=== PATIENT | female | born 1950 | race Caucasian/White ===

== ENCOUNTER 2017-12-01 11:15 | Outpatient (RCR) | payer OTHER, SELFPAY ==
[2017-11-24 10:59] VITALS: BP 115/66; PULSE 61; RESP 18; TEMP 35.4; BMI 28.7
--- NOTE | 2017-11-24 14:24 | PCM.WC.HP ---
(1) Dog bite of calf Status: Chronic Current Visit: Yes Qualifiers: Encounter type: initial encounter Laterality: right Qualified Code(s): S81.851A - Open bite, right lower leg, initial encounter; W54.0XXA - Bitten by dog, initial encounter Code(s): S81.859A - Open bite, unspecified lower leg, initial encounter; W54.0XXA - Bitten by dog, initial encounter (2) Overweight (BMI 25.0-29.9) Status: Chronic Current Visit: No Code(s): E66.3 - Overweight (3) Mitzy's disease Status: Chronic Current Visit: No Code(s): E06.3 - Autoimmune thyroiditis (4) Hyperlipidemia Status: Chronic Current Visit: No Code(s): E78.5 - Hyperlipidemia, unspecified (5) History of TIA (transient ischemic attack) Status: Chronic Current Visit: No Code(s): Z86.73 - Personal history of transient ischemic attack (TIA), and cerebral infarction without residual deficits (6) Rheumatoid arthritis Status: Chronic Current Visit: No Code(s): M06.9 - Rheumatoid arthritis, unspecified (7) Non-healing non-surgical wound Status: Chronic Current Visit: Yes Code(s): T14.8XXA - Other injury of unspecified body region, initial encounter History of Present Illness Date of Service: 11/24/17 Chief Complaint: Dog bite of the right calf with chronic nonhealing History of Wound: This is a 67-year-old female who sustained a dog bite to the right calf on September 20, 2017. She was bitten by a pit bull terrier. She presented to the emergency department in [facility]. There, her wounds were cleansed, sutured, the patient was discharged with a prescription for Augmentin orally and a prescription for mupirocin to be applied topically. She completed her course of Augmentin, was subsequently evaluated by Dr. Johnson, who then prescribed a course of clindamycin. The patient continue to use mupirocin topically, but her wounds failed to heal. She was subsequently referred to the [facility] for management. The patient officially has a [place] address. She lives part of the year in [place], but she and her on a recreational vehicle, and spent a good part of their time traveling about the country. They have plans to spend this upcoming winter in [place], [place], intending to leave further destination within a few short weeks. The patient denies fever, erythema, or manifestations of lymphangitis. She does indicate that she has had occasional yellowish drainage from her wounds. Past Medical History Past Medical History: Chronic Problems Dog bite of calf (Chronic) Overweight (BMI 25.0-29.9) (Chronic) Mitzy's disease (Chronic) Hyperlipidemia (Chronic) History of TIA (transient ischemic attack) (Chronic) Rheumatoid arthritis (Chronic) Non-healing non-surgical wound (Chronic) Past Medical History: The patient has a history of transient ischemic attack in 1995. She also suffers from hyperlipidemia and Mitzy's disease. Her BMI is 28.7, placing her in an overweight category. Her history is negative for myocardial infarction, congestive heart failure, hypertension, cancer, pulmonary disease, and renal disease. Surgical History: - - Patient has had temporomandibular joint surgery. She is undergone bilateral bunion surgery, and surgery of the second toe on each foot. She is a Ab0. Allergies/Adverse Reactions: Allergies No Known Allergies Allergy (Verified 11/24/17 11:49) Home Medications: Ambulatory Orders Medication Instructions Recorded Desonide 0.05% [Desowen 0.05% 1 applic TOPICAL BID 11/24/17 Cream] Folic Acid 1 mg PO DAILY@0800 11/24/17 Hydrochlorothiazide [Hctz] 25 mg PO DAILY 11/24/17 Levothyroxine [Synthroid] 137 mcg PO DAILY 11/24/17 Methotrexate 15 mg PO QWEEK 11/24/17 Omeprazole 40 mg PO DAILY 11/24/17 Oxycodone HCl/Acetaminophen 1 tablet PO Q6H PRN PRN 11/24/17 [Percocet 7.5-325 mg Tablet] Sucralfate 1 gm PO BID 11/24/17 Tizanidine HCl 4 mg PO TID PRN PRN 11/24/17 Tocilizumab [Actemra] 162 mg SQ UD 11/24/17 Triamcinolone 0.5% Cream 1 applic TOPICAL BID 11/24/17 [Triamcinolone Acetonide] - Family History Paternal - - The patient's father at the age of 60 with a history of atherosclerosis and cerebrovascular accident. The patient's mother at the age of 76 with history of rheumatoid arthritis, lung cancer, and myocardial infarction. Social History: The patient is . She is a retired [employer] officer. She denies use of tobacco products. She consumes alcoholic beverages occasionally. Lives: Spouse/ Significant Other Smoking Status: Former smoker Tobacco Use: Non-smoker Alcohol: Occasional Drugs: None Review of Systems Constitutional: Denies: Chills, Fever, Weight Change Eyes: Denies: Pain, Vision Change HEENT: Denies: Difficulty Hearing, Difficulty Swallowing, Sinus Congestion Cardiovascular: Denies: Chest Pain, Palpitations Respiratory: Denies: Cough, Shortness of Breath Gastrointestinal: Denies: Diarrhea, Nausea, Vomiting Genitourinary: Denies: Dysuria, Hematuria Endocrine: Denies: Heat/ Cold Intolerance, Polydipsia, Polyuria Hematologic/ Lymphatic: Denies: Easy Bruising, Easy Bleeding - Physical Exam Vital Signs Temp Pulse Resp BP 95.7 F L 61 18 115/66 11/24/17 10:59 11/24/17 10:59 11/24/17 10:59 11/24/17 10:59 General: Alert, Oriented x3, Cooperative, No apparent distress, Well developed, Well nourished HEENT: Atraumatic, PERRLA, EOMI, Normocephalic Oral: Moist Mucosa, No Gingival or Mucosal Lesions/ Ulcerations Neck: Supple, No JVD, Negative Carotid Bruits, Negative Hepatojugular Reflux, No Nodes, No Nuchal Rigidity, Trachea Midline Lungs: Clear to auscultation, Normal air movement, No rhonchi, No wheeze, No rales Cardiovascular: Regular rate, Regular Rhythm, Normal S1, Normal S2, No murmurs Abdomen: Soft, Non Tender, Non-Distended Extremities: No clubbing, No cyanosis, No edema, No Calf Tenderness, Peripheral Pulses Normal, - - Paired dog bites are noted on the right posterior calf and on the right lateral calf. Undermining is noted in association with these dog bite wounds. There is no significant erythema or cellulitis. A small amount of yellowish drainage is noted. Cultures have been obtained, both aerobic and anaerobic. Dimensions are documented elsewhere. Skin: No rashes Wound Measurements and Assessment WC - Nurse 1 - General Ulcer Measurement Start: 11/24/17 10:58 Freq: Status: Active Protocol: Activity Type Activity Date Activity User E-Sign Co-Sign Detail Recorded Client Recorded Date Recorded By Document 11/24/17 10:59 ROCHELLE [id number] 11/24/17 11:34 ROCHELLE 11/24/17 10:59 Wound Center Nurse 1 [Ulcer Assessment] 3-RIGHT CALF -Combined with other wound No -Current Size (cm) - Length 0.2 -Current Size (cm) - Width 1.2 -Current Size (cm) - Depth 0.3 -Total Square Cm 0.24 -Photo Taken Yes -Epithelialization Large 67-100% -Tunneling No -Undermining/Tunneling No -Circular Undermining No -Classification - Thickness Full Thickness without Exposed Support Structure -Exudate Amt Small (1-33%) -Exudate Type Serosanguineous -Wound Margin Flat & Intact -Granulation Amt Medium (34-66%) -Granulation Quality Red -Slough/Fibrin Yes -Necrosis Amt Small (1-33%) -Necrotic Tissue Type Adherent Slough -Structure Exposed N/A -Texture (Tamiko-wound Skin Appearance) Assessed Localized Edema -Moisture (Tamiko-wound Skin Appearance Assessed ) Dry/Scaly -Color (Tamiko-wound Skin Appearance) Assessed -Temperature (Tamiko-wound Skin No Abnormality Appearance) (Pt Warm) -Tenderness on Palpation (Tamiko-wound No Skin Appearance) -Ulcer Cleansing Rinsed/ Irrigated with Saline -Foul Odor after Cleansing No -Anesthetic Used 5% Lidocaine Gel 2-RIGHT LATERAL INFERIOR LEG -Combined with other wound No -Current Size (cm) - Length 1.2 -Current Size (cm) - Width 0.5 -Current Size (cm) - Depth 0.1 -Total Square Cm 0.60 -Photo Taken Yes -Epithelialization Medium 34-66% -Tunneling No -Undermining/Tunneling No -Circular Undermining No -Classification - Thickness Full Thickness without Exposed Support Structure -Exudate Amt Small (1-33%) -Exudate Type Serosanguineous -Wound Margin Flat & Intact -Granulation Amt Medium (34-66%) -Granulation Quality [place] -Slough/Fibrin Yes -Necrosis Amt Medium (34-66%) -Necrotic Tissue Type Adherent Slough -Structure Exposed N/A -Texture (Tamiko-wound Skin Appearance) Assessed Localized Edema -Moisture (Tamiko-wound Skin Appearance Assessed ) Dry/Scaly -Color (Tamiko-wound Skin Appearance) Assessed -Temperature (Tamiko-wound Skin No Abnormality Appearance) (Pt Warm) -Tenderness on Palpation (Tamiko-wound No Skin Appearance) -Ulcer Cleansing Rinsed/ Irrigated with Saline -Foul Odor after Cleansing No -Anesthetic Used 5% Lidocaine Gel 1-RIGHT sUPERIOR LEG -Combined with other wound No -Current Size (cm) - Length 0.4 -Current Size (cm) - Width 0.1 -Current Size (cm) - Depth 0.1 -Total Square Cm 0.04 -Photo Taken Yes -Epithelialization Large 67-100% -Tunneling No -Undermining/Tunneling No -Circular Undermining No -Classification - Thickness Full Thickness without Exposed Support Structure -Exudate Amt None Present (0 %) -Exudate Type Serosanguineous -Wound Margin Flat & Intact -Granulation Amt None Present (0 %) -Slough/Fibrin Yes -Necrosis Amt Large (67-100%) -Structure Exposed N/A -Texture (Tamiko-wound Skin Appearance) Assessed -Moisture (Tamiko-wound Skin Appearance Assessed ) Dry/Scaly -Color (Tamiko-wound Skin Appearance) Assessed -Temperature (Tamiko-wound Skin No Abnormality Appearance) (Pt Warm) -Tenderness on Palpation (Tamiko-wound No Skin Appearance) -Ulcer Cleansing Rinsed/ Irrigated with Saline -Foul Odor after Cleansing No -Anesthetic Used 5% Lidocaine Gel [Edema Assessment] -Lower Limb Edema Present Yes -Right Calf (cm) 37.5 -Right Ankle (cm) 23.3 WC - Nurse 2 - General Ulcer CM Notes Start: 11/24/17 10:58 Freq: Status: Active Protocol: Activity Type Activity Date Activity User E-Sign Co-Sign Detail Recorded Client Recorded Date Recorded By Document 11/24/17 12:19 [id number] 11/24/17 12:38 11/24/17 12:19 Wound Center Nurse 2 [Procedure/Treatment] 3-RIGHT CALF -Time 12:19 -Correct Patient Yes -Correct Side, Site, Position Yes -Correct Procedure Yes -Procedure Performed Yes -Type of Procedure Debridement -Clinical Debridement Subcutaneous -Post Debridement Size (cm) - Length 0.2 -Post Debridement Size (cm) - Width 1.2 -Post Debridement Size (cm) - Depth 0.9 -Total Square Cm 0.24 -Wound/Ulcer Outcome Not Healed -Ulcer Cleansing Not Cleansed -Foul Odor after Cleansing No -Bioengineered Tissue No -Bleeding Controlled with NA -Treatment Response Procedure Tolerated Well 2-RIGHT LATERAL INFERIOR LEG -Time 12:19 -Correct Patient Yes -Correct Side, Site, Position Yes -Correct Procedure Yes -Procedure Performed Yes -Type of Procedure Debridement -Clinical Debridement Subcutaneous -Post Debridement Size (cm) - Length 1.2 -Post Debridement Size (cm) - Width 0.5 -Post Debridement Size (cm) - Depth 0.6 -Total Square Cm 0.60 -Wound/Ulcer Outcome Not Healed -Ulcer Cleansing Not Cleansed -Foul Odor after Cleansing No -Bioengineered Tissue No -Bleeding Controlled with NA -Treatment Response Procedure Tolerated Well 1-RIGHT sUPERIOR LEG -Time 12:20 -Correct Patient Yes -Correct Side, Site, Position Yes -Correct Procedure Yes -Procedure Performed Yes -Type of Procedure Debridement -Clinical Debridement Subcutaneous -Post Debridement Size (cm) - Length 0.4 -Post Debridement Size (cm) - Width 0.1 -Post Debridement Size (cm) - Depth 0.8 -Total Square Cm 0.04 -Wound/Ulcer Outcome Not Healed -Ulcer Cleansing Not Cleansed -Foul Odor after Cleansing No -Bioengineered Tissue No -Bleeding Controlled with Pressure -Treatment Response Procedure Tolerated Well [See Physician Procedure note for Specifics] Pain Scale: 0-10 Numeric [Pain] -Is Patient Pain Free? Yes Musculoskeletal: No Muscle Wasting Neurological: Cranial nerves II-XII grossly intact, Neuro grossly intact Psych/Mental Status: Normal Affect, Appropriate, Alert and oriented to time, place, person, mood and affect Debridement Note Post-Debridement Measurements/Treatment WC - Nurse 2 - General Ulcer CM Notes Start: 11/24/17 10:58 Freq: Status: Active Protocol: Activity Type Activity Date Activity User E-Sign Co-Sign Detail Recorded Client Recorded Date Recorded By Document 11/24/17 12:19 [id number] 11/24/17 12:38 11/24/17 12:19 Wound Center Nurse 2 3-RIGHT CALF -Time 12:19 -Correct Patient Yes -Correct Side, Site, Position Yes -Correct Procedure Yes -Procedure Performed Yes -Type of Procedure Debridement -Clinical Debridement Subcutaneous -Post Debridement Size (cm) - Length 0.2 -Post Debridement Size (cm) - Width 1.2 -Post Debridement Size (cm) - Depth 0.9 -Total Square Cm 0.24 -Wound/Ulcer Outcome Not Healed -Ulcer Cleansing Not Cleansed -Foul Odor after Cleansing No -Bioengineered Tissue No -Bleeding Controlled with NA -Treatment Response Procedure Tolerated Well 2-RIGHT LATERAL INFERIOR LEG -Time 12:19 -Correct Patient Yes -Correct Side, Site, Position Yes -Correct Procedure Yes -Procedure Performed Yes -Type of Procedure Debridement -Clinical Debridement Subcutaneous -Post Debridement Size (cm) - Length 1.2 -Post Debridement Size (cm) - Width 0.5 -Post Debridement Size (cm) - Depth 0.6 -Total Square Cm 0.60 -Wound/Ulcer Outcome Not Healed -Ulcer Cleansing Not Cleansed -Foul Odor after Cleansing No -Bioengineered Tissue No -Bleeding Controlled with NA -Treatment Response Procedure Tolerated Well 1-RIGHT sUPERIOR LEG -Time 12:20 -Correct Patient Yes -Correct Side, Site, Position Yes -Correct Procedure Yes -Procedure Performed Yes -Type of Procedure Debridement -Clinical Debridement Subcutaneous -Post Debridement Size (cm) - Length 0.4 -Post Debridement Size (cm) - Width 0.1 -Post Debridement Size (cm) - Depth 0.8 -Total Square Cm 0.04 -Wound/Ulcer Outcome Not Healed -Ulcer Cleansing Not Cleansed -Foul Odor after Cleansing No -Bioengineered Tissue No -Bleeding Controlled with Pressure -Treatment Response Procedure Tolerated Well Pain Scale: 0-10 Numeric Is Patient Pain Free? Yes Laterality: Right - Posterior calf Type of Debridement: Excisional debridement Anesthesia Used: 4% Lidocaine Solution Depth: Down to and including healthy tissue, in the subcutaneous layer Percentage of wound debrided: 100 Instrument Used: 3mm curette Severity: Fat Layer Exposed Amount of bleeding with debridement: Mild Bleeding Controlled with: Compression and gauze Patient tolerated procedure well During the course of debriding the patient's dog bite wounds, aerobic and anaerobic cultures were obtained by swab. - Additional Wound Laterality: Right - Lateral calf Type of Debridement: Excisional debridement Anesthesia Used: 4% Lidocaine Solution Depth: Down to and including healthy tissue, in the subcutaneous layer Percentage of wound debrided: 100 Instrument Used: 3mm curette Severity: Fat Layer Exposed Amount of bleeding with debridement: Mild Bleeding Controlled with: Compression and gauze Patient tolerated procedure: Patient tolerated procedure well Assessment/Plan Active Problems Dog bite of calf (Chronic) Non-healing non-surgical wound (Chronic) Assessment: This is a 67-year-old female who sustained a dog bite wound to the right calf September 20, 2017, approximately 2 months ago. She was evaluated initially in the emergency department at [facility], and subsequently by Dr. Johnson, and has been treated topically by mupirocin and 2 separate courses of oral antibiotics, initially Augmentin and subsequently clindamycin. Despite these measures, the patient's dog bite wounds have failed to heal, and have persisted until the current time. She has been referred to our facility for evaluation and management. In general, she appears to be relatively healthy, and active. Physical examination reveals no evidence to suggest significant arterial occlusive disease. The morphology of the patient's dog bite wounds is such that there is undermining present with respect to the paired wounds on the right posterior calf and on the right lateral calf. Patient has recently undergone outpatient laboratory studies, dated October 28, 2017, with results as follows: White blood count 3.7, hemoglobin 13.6, hematocrit 40.9, glucose 88, sodium 138, potassium 3.9, chloride 103, creatinine 0.67, calcium 9.3, albumin 4.5, alkaline phosphatase 88, ALT 30, AST 30, total protein 6.7, sed rate 2, C-reactive protein less than 0.5. Plan: At this juncture, we are to implement the use of Nu Gauze packing to the wounds of the patient's right calf. The wounds are somewhat tunneled, and may be of a morphology which is not ideal for healing by secondary intention. This is a matter that has been explained to the patient and her . We will initiate care by means of packing with moistened 1/4 inch Nu Gauze. This will be performed on a daily basis. The patient, and her , have been instructed in appropriate means of packing of the wounds. The patient will return in 1 week for reevaluation. The wound has been cultured, and culture results will be awaited. Ultimately, after several weeks, if evidence of progress and healing is not realized, consideration may be given to surgical unroofing and debridement of the dog bite wounds, which will ultimately facilitate healing by secondary intention. The patient is not a smoker. Influenza vaccine was not administered today. Patient stands 5 feet 6 inches tall. She weighs 178 pounds. Her BMI is 28.7, which places her in an overweight category. Weight loss has been recommended, and collaboration with the patient's primary care physician has been advised.
[2017-12-01 11:09] VITALS: BP 137/72; PULSE 53; RESP 18; TEMP 35.5; BMI 28.7
--- NOTE | 2017-12-01 12:23 | PCM.WC.HP ---
(1) Dog bite of calf Status: Chronic Current Visit: Yes Qualifiers: Encounter type: subsequent encounter Laterality: right Qualified Code(s): S81.851D - Open bite, right lower leg, subsequent encounter; W54.0XXD - Bitten by dog, subsequent encounter Code(s): S81.859A - Open bite, unspecified lower leg, initial encounter; W54.0XXA - Bitten by dog, initial encounter (2) Overweight (BMI 25.0-29.9) Status: Chronic Current Visit: No Code(s): E66.3 - Overweight (3) Mitzy's disease Status: Chronic Current Visit: No Code(s): E06.3 - Autoimmune thyroiditis (4) Hyperlipidemia Status: Chronic Current Visit: No Code(s): E78.5 - Hyperlipidemia, unspecified (5) History of TIA (transient ischemic attack) Status: Chronic Current Visit: No Code(s): Z86.73 - Personal history of transient ischemic attack (TIA), and cerebral infarction without residual deficits (6) Rheumatoid arthritis Status: Chronic Current Visit: No Code(s): M06.9 - Rheumatoid arthritis, unspecified (7) Non-healing non-surgical wound Status: Chronic Current Visit: Yes Code(s): T14.8XXA - Other injury of unspecified body region, initial encounter History of Present Illness Chief Complaint: Dog bite of the right calf with chronic nonhealing History of Wound: This is a 67-year-old female who sustained a dog bite to the right calf on September 20, 2017. She was bitten by a pit bull terrier. She presented to the emergency department in [facility]. There, her wounds were cleansed, sutured, the patient was discharged with a prescription for Augmentin orally and a prescription for mupirocin to be applied topically. She completed her course of Augmentin, and was subsequently evaluated by Dr. Johnson, who then prescribed a course of clindamycin. The patient continued to use mupirocin topically, but her wounds failed to heal. She was subsequently referred to the [facility] for management. The patient officially has a [place] address. She lives part of the year in [place], but she and her own a recreational vehicle, and spend a good part of their time traveling about the country. They have plans to spend this upcoming winter in [place], [place], intending to leave for their destination within a few short weeks. The patient denies fever, erythema, or manifestations of lymphangitis. She indicated that she had had occasional yellowish drainage from her wounds. Past Medical History Past Medical History: Chronic Problems Dog bite of calf (Chronic) Overweight (BMI 25.0-29.9) (Chronic) Mitzy's disease (Chronic) Hyperlipidemia (Chronic) History of TIA (transient ischemic attack) (Chronic) Rheumatoid arthritis (Chronic) Non-healing non-surgical wound (Chronic) Surgical History: - - Patient has had temporomandibular joint surgery. She is undergone bilateral bunion surgery, and surgery of the second toe on each foot. She is a Ab0. Allergies/Adverse Reactions: Allergies No Known Allergies Allergy (Verified 11/24/17 11:49) Home Medications: Ambulatory Orders Medication Instructions Recorded Desonide 0.05% [Desowen 0.05% 1 applic TOPICAL BID 11/24/17 Cream] Folic Acid 1 mg PO DAILY@0800 11/24/17 Hydrochlorothiazide [Hctz] 25 mg PO DAILY 11/24/17 Levothyroxine [Synthroid] 137 mcg PO DAILY 11/24/17 Methotrexate 15 mg PO QWEEK 11/24/17 Omeprazole 40 mg PO DAILY 11/24/17 Oxycodone HCl/Acetaminophen 1 tablet PO Q6H PRN PRN 11/24/17 [Percocet 7.5-325 mg Tablet] Sucralfate 1 gm PO BID 11/24/17 Tizanidine HCl 4 mg PO TID PRN PRN 11/24/17 Tocilizumab [Actemra] 162 mg SQ UD 11/24/17 Triamcinolone 0.5% Cream 1 applic TOPICAL BID 11/24/17 [Triamcinolone Acetonide] - Family History Paternal - - The patient's father at the age of 60 with a history of atherosclerosis and cerebrovascular accident. The patient's mother at the age of 76 with history of rheumatoid arthritis, lung cancer, and myocardial infarction. Lives: Spouse/ Significant Other Smoking Status: Former smoker Tobacco Use: Non-smoker Alcohol: Occasional Drugs: None Review of Systems Constitutional: Denies: Chills, Fever, Weight Change Eyes: Denies: Pain, Vision Change HEENT: Denies: Difficulty Hearing, Difficulty Swallowing, Sinus Congestion Cardiovascular: Denies: Chest Pain, Palpitations Respiratory: Denies: Cough, Shortness of Breath Gastrointestinal: Denies: Diarrhea, Nausea, Vomiting Genitourinary: Denies: Dysuria, Hematuria Endocrine: Denies: Heat/ Cold Intolerance, Polydipsia, Polyuria Hematologic/ Lymphatic: Denies: Easy Bruising, Easy Bleeding - Physical Exam Vital Signs Temp Pulse Resp BP 95.9 F L 53 L 18 137/72 H 12/01/17 11:09 12/01/17 11:09 12/01/17 11:09 12/01/17 11:09 General: Alert, Oriented x3, Cooperative, No apparent distress, Well developed, Well nourished HEENT: Atraumatic, PERRLA, EOMI, Normocephalic Oral: Moist Mucosa Neck: No JVD Lungs: Normal air movement Abdomen: Non-Distended Extremities: No clubbing, No cyanosis, No edema, No Calf Tenderness, - - The wounds on the patient's right lower extremity, the result of a dog bite, appear somewhat improved. Each is generally pink and healthy in appearance, with evidence of active, healthy granulation tissue. There is no sign of infection or cellulitis. There is no associated erythema. Only mild bioburden is present. Dimensions are documented elsewhere. Skin: No rashes Wound Measurements and Assessment WC - Nurse 1 - General Ulcer Measurement Start: 11/24/17 10:58 Freq: Status: Active Protocol: Activity Type Activity Date Activity User E-Sign Co-Sign Detail Recorded Client Recorded Date Recorded By Document 12/01/17 11:09 GERARD [id number] 12/01/17 11:20 DL 12/01/17 11:09 Wound Center Nurse 1 [Ulcer Assessment] 3-RIGHT CALF -Current Size (cm) - Length 0.3 -Current Size (cm) - Width 2.6 -Current Size (cm) - Depth 0.2 -Total Square Cm 0.78 -Photo Taken No -Exudate Amt Small (1-33%) -Exudate Type Serosanguineous -Wound Margin Distinct, Outline Attached -Granulation Amt Large (67-100%) -Granulation Quality Red -Necrosis Amt None Present (0 %) -Structure Exposed N/A -Texture (Tamiko-wound Skin Appearance) Localized Edema -Moisture (Tamiko-wound Skin Appearance No Abnormality ) -Color (Tamiko-wound Skin Appearance) No Abnormality -Temperature (Tamiko-wound Skin No Abnormality Appearance) (Pt Warm) -Tenderness on Palpation (Tamiko-wound Yes Skin Appearance) -Ulcer Cleansing Rinsed/ Irrigated with Saline -Foul Odor after Cleansing No -Anesthetic Used 4% Lidocaine Solution 2-RIGHT LATERAL INFERIOR LEG -Current Size (cm) - Length 1.1 -Current Size (cm) - Width 0.5 -Current Size (cm) - Depth 0.2 -Total Square Cm 0.55 -Photo Taken No -Exudate Amt Small (1-33%) -Exudate Type Serosanguineous -Wound Margin Distinct, Outline Attached -Granulation Amt Large (67-100%) -Granulation Quality Red -Necrosis Amt None Present (0 %) -Structure Exposed N/A -Texture (Tamiko-wound Skin Appearance) Localized Edema -Moisture (Tamiko-wound Skin Appearance No Abnormality ) -Color (Tamiko-wound Skin Appearance) Erythema -Temperature (Tamiko-wound Skin No Abnormality Appearance) (Pt Warm) -Tenderness on Palpation (Tamiko-wound Yes Skin Appearance) -Ulcer Cleansing Rinsed/ Irrigated with Saline -Foul Odor after Cleansing No -Anesthetic Used 4% Lidocaine Solution 1-RIGHT sUPERIOR LEG -Current Size (cm) - Length 0.4 -Current Size (cm) - Width 0.2 -Current Size (cm) - Depth 0.2 -Total Square Cm 0.08 -Photo Taken No -Exudate Amt None Present (0 %) -Wound Margin Flat & Intact -Granulation Amt Large (67-100%) -Granulation Quality Red -Necrosis Amt None Present (0 %) -Structure Exposed N/A -Texture (Tamiko-wound Skin Appearance) Localized Edema -Moisture (Tamiko-wound Skin Appearance No Abnormality ) -Color (Tamiko-wound Skin Appearance) Erythema -Temperature (Tamiko-wound Skin No Abnormality Appearance) (Pt Warm) -Ulcer Cleansing Rinsed/ Irrigated with Saline -Foul Odor after Cleansing No -Anesthetic Used 4% Lidocaine Solution WC - Nurse 2 - General Ulcer CM Notes Start: 11/24/17 10:58 Freq: Status: Active Protocol: Activity Type Activity Date Activity User E-Sign Co-Sign Detail Recorded Client Recorded Date Recorded By Document 12/01/17 12:04 [id number] 12/01/17 12:22 12/01/17 12:04 Wound Center Nurse 2 [Procedure/Treatment] 3-RIGHT CALF -Time 12:04 -Correct Patient Yes -Correct Side, Site, Position Yes -Correct Procedure Yes -Procedure Performed Yes -Type of Procedure Debridement -Clinical Debridement Subcutaneous -Post Debridement Size (cm) - Length 0.4 -Post Debridement Size (cm) - Width 0.3 -Post Debridement Size (cm) - Depth 0.2 -Total Square Cm 0.12 -Wound/Ulcer Outcome Not Healed -Ulcer Cleansing Rinsed/ Irrigated with Saline -Foul Odor after Cleansing No -Bioengineered Tissue No -Topical Lidocaine (%) 45 -Bleeding Controlled with NA -Treatment Response Procedure Tolerated Well 2-RIGHT LATERAL INFERIOR LEG -Time 12:05 -Correct Patient Yes -Correct Side, Site, Position Yes -Correct Procedure Yes -Procedure Performed Yes -Type of Procedure Debridement -Clinical Debridement Subcutaneous -Post Debridement Size (cm) - Length 1.2 -Post Debridement Size (cm) - Width 0.5 -Post Debridement Size (cm) - Depth 0.2 -Total Square Cm 0.60 -Wound/Ulcer Outcome Not Healed -Ulcer Cleansing Rinsed/ Irrigated with Saline -Foul Odor after Cleansing No -Bioengineered Tissue No -Bleeding Controlled with NA -Treatment Response Procedure Tolerated Well 1-RIGHT sUPERIOR LEG -Time 12:07 -Correct Patient Yes -Correct Side, Site, Position Yes -Correct Procedure Yes -Procedure Performed Yes -Type of Procedure Debridement -Clinical Debridement Subcutaneous -Post Debridement Size (cm) - Length 0.5 -Post Debridement Size (cm) - Width 0.3 -Post Debridement Size (cm) - Depth 0.2 -Total Square Cm 0.15 -Wound/Ulcer Outcome Not Healed -Ulcer Cleansing Rinsed/ Irrigated with Saline -Foul Odor after Cleansing No -Bioengineered Tissue No -Bleeding Controlled with NA -Treatment Response Procedure Tolerated Well [See Physician Procedure note for Specifics] Pain Scale: 0-10 Numeric [Pain] -Is Patient Pain Free? Yes Musculoskeletal: No Muscle Wasting Neurological: Cranial nerves II-XII grossly intact, Neuro grossly intact Psych/Mental Status: Normal Affect, Appropriate, Alert and oriented to time, place, person, mood and affect Debridement Note Post-Debridement Measurements/Treatment WC - Nurse 2 - General Ulcer CM Notes Start: 11/24/17 10:58 Freq: Status: Active Protocol: Activity Type Activity Date Activity User E-Sign Co-Sign Detail Recorded Client Recorded Date Recorded By Document 11/24/17 12:19 CS [id number] 11/24/17 12:38 CS Document 12/01/17 12:04 JS [id number] 12/01/17 12:22 JS 11/24/17 12/01/17 12:19 12:04 Wound Center Nurse 2 3-RIGHT CALF -Time 12:19 12:04 -Correct Patient Yes Yes -Correct Side, Site, Position Yes Yes -Correct Procedure Yes Yes -Procedure Performed Yes Yes -Type of Procedure Debridement Debridement -Clinical Debridement Subcutaneous Subcutaneous -Post Debridement Size (cm) - Length 0.2 0.4 -Post Debridement Size (cm) - Width 1.2 0.3 -Post Debridement Size (cm) - Depth 0.9 0.2 -Total Square Cm 0.24 0.12 -Wound/Ulcer Outcome Not Healed Not Healed -Ulcer Cleansing Not Cleansed Rinsed/ Irrigated with Saline -Foul Odor after Cleansing No No -Bioengineered Tissue No No -Topical Lidocaine (%) 45 -Bleeding Controlled with NA NA -Treatment Response Procedure Procedure Tolerated Well Tolerated Well 2-RIGHT LATERAL INFERIOR LEG -Time 12:19 12:05 -Correct Patient Yes Yes -Correct Side, Site, Position Yes Yes -Correct Procedure Yes Yes -Procedure Performed Yes Yes -Type of Procedure Debridement Debridement -Clinical Debridement Subcutaneous Subcutaneous -Post Debridement Size (cm) - Length 1.2 1.2 -Post Debridement Size (cm) - Width 0.5 0.5 -Post Debridement Size (cm) - Depth 0.6 0.2 -Total Square Cm 0.60 0.60 -Wound/Ulcer Outcome Not Healed Not Healed -Ulcer Cleansing Not Cleansed Rinsed/ Irrigated with Saline -Foul Odor after Cleansing No No -Bioengineered Tissue No No -Bleeding Controlled with NA NA -Treatment Response Procedure Procedure Tolerated Well Tolerated Well 1-RIGHT sUPERIOR LEG -Time 12:20 12:07 -Correct Patient Yes Yes -Correct Side, Site, Position Yes Yes -Correct Procedure Yes Yes -Procedure Performed Yes Yes -Type of Procedure Debridement Debridement -Clinical Debridement Subcutaneous Subcutaneous -Post Debridement Size (cm) - Length 0.4 0.5 -Post Debridement Size (cm) - Width 0.1 0.3 -Post Debridement Size (cm) - Depth 0.8 0.2 -Total Square Cm 0.04 0.15 -Wound/Ulcer Outcome Not Healed Not Healed -Ulcer Cleansing Not Cleansed Rinsed/ Irrigated with Saline -Foul Odor after Cleansing No No -Bioengineered Tissue No No -Bleeding Controlled with Pressure NA -Treatment Response Procedure Procedure Tolerated Well Tolerated Well Pain Scale: 0-10 Numeric Is Patient Pain Free? Yes Yes Laterality: Right - Calf wounds, multiple, clustered Type of Debridement: Excisional debridement Anesthesia Used: 4% Lidocaine Solution Depth: Down to and including healthy tissue, in the subcutaneous layer Percentage of wound debrided: 100 Instrument Used: 3mm curette Severity: Fat Layer Exposed Amount of bleeding with debridement: Mild Bleeding Controlled with: Compression and gauze Patient tolerated procedure well Assessment/Plan Active Problems Dog bite of calf (Chronic) Non-healing non-surgical wound (Chronic) Assessment: This is a 67-year-old female who sustained a dog bite wound to the right calf September 20, 2017, approximately 2 months ago. She was evaluated initially in the emergency department at [facility], and subsequently by Dr. Johnson, and has been treated topically by mupirocin and 2 separate courses of oral antibiotics, initially Augmentin and subsequently clindamycin. Despite these measures, the patient's dog bite wounds have failed to heal, and have persisted until the current time. She has been referred to our facility for evaluation and management. In general, she appears to be relatively healthy, and active. Physical examination reveals no evidence to suggest significant arterial occlusive disease. The morphology of the patient's dog bite wounds is such that there is undermining present with respect to the paired wounds on the right posterior calf and on the right lateral calf. Patient has recently undergone outpatient laboratory studies, dated October 28, 2017, with results as follows: White blood count 3.7, hemoglobin 13.6, hematocrit 40.9, glucose 88, sodium 138, potassium 3.9, chloride 103, creatinine 0.67, calcium 9.3, albumin 4.5, alkaline phosphatase 88, ALT 30, AST 30, total protein 6.7, sed rate 2, C-reactive protein less than 0.5. A culture, obtained at the patient's visit last week, was negative for bacterial growth. Plan: We are to continue the use of Nu Gauze packing to the wounds of the patient's right calf. The wounds are somewhat tunneled, and may be of a morphology which is not ideal for healing by secondary intention. This is a matter that has been explained to the patient and her . We will continue care by means of packing with moistened 1/4 inch Nu Gauze. This will be performed on a daily basis. The patient, and her , have been instructed in appropriate means of packing of the wounds. The patient will return in 1 week for reevaluation. The wound has been cultured, and culture results were negative. Ultimately, after several weeks, if evidence of progress and healing is not realized, consideration may be given to surgical unroofing and debridement of the dog bite wounds, which will ultimately facilitate healing by secondary intention. Ultimately, the patient and her intend to disembark in several weeks for their winter stay in [place], [place]. The patient is not a smoker. Influenza vaccine was not administered today. Patient stands 5 feet 6 inches tall. She weighs 178 pounds. Her BMI is 28.7, which places her in an overweight category. Weight loss has been recommended, and collaboration with the patient's primary care physician has been advised.
== END 2017-12-06 23:59 ==
LOC: WC 11:15
PROVIDERS: PCP Family Medicine; Visit Provider Surgery
DX: S81.851A Open bite, right lower leg, initial encounter (principal); W54.0XXA Bitten by dog, initial encounter; E06.3 Autoimmune thyroiditis; E78.5 Hyperlipidemia, unspecified; Z86.73 Personal history of transient ischemic attack (TIA), and cerebral infarction without residual deficits; M06.9 Rheumatoid arthritis, unspecified; Z87.891 Personal history of nicotine dependence
CPT/HCPCS: 11042; 87070; 87075; 87205; 99205; 99213; G0463

== ENCOUNTER → 2017-12-04 11:28 | Outpatient (CLI) | payer MEDICARE, SELFPAY ==
[2017-12-04 12:19] LABS: Erythrocyte Sedimentation Rate 2 mm/hr (0-30)
[2017-12-04 12:22] LABS: Absolute Lymphocyte Count 1.15 X10^3/ul (0.83-4.51); Absolute Neutrophil Count 1.3 X10^3/uL (2.0-7.7); Basophil# 0.01 X10^3/uL; Basophil% 0.3 % (0-1); Eosinophils% 3.5 % (0-5); Hematocrit 42.6 % (37-47); Hemoglobin 14.1 g/dl (12.0-15.0); Lymphocyte # 1.15 X10^3/ul (4.0); Lymphocyte % 39.8 % (19-41); Mean Corp Hgb Conc 33.1 g/gl (32-36); Mean Corpuscular Hgb 32.3 pg (27.0-32.0); Mean Corpuscular Volume 97.5 fL (81-99); Mean Platelet Vol. 11.2 fl (6.2-12.0); Monocyte# 0.37 X10^3/uL; Monocyte% 12.8 % (0-10); Neutrophil # 1.26 X10^3/uL (2.7-7.7); Neutrophil % 43.6 % (47-70); Platelet Count 188 K/mm3 (150-450); RBC Distribution Width CV 13.6 % (11.6-14.6); RBC Distribution Width SD 48.9 fl (35.1-43.9); Red Blood Count 4.37 M/mm3 (4.2-5.4); White Blood Count 2.9 K/mm3 (4.4-11.0)
[2017-12-04 12:23] LABS: POSITIVE COUNT NO; POSITIVE DIFFERENTIAL NO; POSITIVE MORPHOLOGY NO
[2017-12-04 12:57] LABS: AST(SGOT) 73 U/L (15-37); Alanine Aminotransfer ALT/SGPT 120 U/L (13-56); Alkaline Phosphatase 158 U/L (45-117); Anion Gap 9 (5-15); BUN 11 mg/dL (7-18); BUN/Creat Ratio 16.5 RATIO (10-20); Bilirubin, Direct 0.18 mg/dL (0.00-0.30); CRP < 2.90 mg/L (0.0-3.0); Calcium,Total 9.3 mg/dL (8.5-10.1); Chloride 106 mmol/L (98-107); Creatinine, Serum 0.67 mg/dL (0.55-1.02); EST Glomerular Filtration Rate 94 mL/min (>60); Est Glom Filt Rate - Afr Amer 114 mL/min (>60); Globulin 3.5 g/dL (2.2-4.2); Glucose 91 mg/dL (74-106); Potassium 3.9 mmol/L (3.5-5.1); Protein, Total 7.5 g/dL (6.4-8.2); Sodium Level 142 mmol/L (136-145); Thyroid Stim Hormone (TSH) 1.06 uIU/mL (0.358-3.74)
== END ==
PROVIDERS: PCP Family Medicine
DX: M05.79 Rheumatoid arthritis with rheumatoid factor of multiple sites without organ or systems involvement (principal); Z79.899 Other long term (current) drug therapy
CPT/HCPCS: 36415; 80048; 80076; 84443; 85025; 85652; 86140

== ENCOUNTER 2017-12-24 11:15 | Outpatient (RCR) | payer MEDICARE, SELFPAY ==
[2017-12-07 01:45] VITALS: BP 137/72; PULSE 53; RESP 18; TEMP 35.5
[2017-12-08 11:34] VITALS: BP 118/72; PULSE 56; RESP 18; TEMP 35.6
--- NOTE | 2017-12-08 12:22 | HP.PCM_ITS ---
(1) Dog bite of calf Status: Chronic Current Visit: Yes Qualifiers: Encounter type: subsequent encounter Laterality: right Qualified Code(s): S81.851D - Open bite, right lower leg, subsequent encounter; W54.0XXD - Bitten by dog, subsequent encounter Code(s): S81.859A - Open bite, unspecified lower leg, initial encounter; W54.0XXA - Bitten by dog, initial encounter (2) Overweight (BMI 25.0-29.9) Status: Chronic Current Visit: No Code(s): E66.3 - Overweight (3) Mitzy's disease Status: Chronic Current Visit: No Code(s): E06.3 - Autoimmune thyroiditis (4) Hyperlipidemia Status: Chronic Current Visit: No Code(s): E78.5 - Hyperlipidemia, unspecified (5) History of TIA (transient ischemic attack) Status: Chronic Current Visit: No Code(s): Z86.73 - Personal history of transient ischemic attack (TIA), and cerebral infarction without residual deficits (6) Rheumatoid arthritis Status: Chronic Current Visit: No Code(s): M06.9 - Rheumatoid arthritis, unspecified (7) Non-healing non-surgical wound Status: Chronic Current Visit: Yes Code(s): T14.8XXA - Other injury of unspecified body region, initial encounter History of Present Illness Chief Complaint: Dog bite of the right calf with chronic nonhealing History of Wound: This is a 67-year-old female who sustained a dog bite to the right calf on September 20, 2017. She was bitten by a pit bull terrier. She presented to the emergency department in [facility]. There, her wounds were cleansed, sutured, the patient was discharged with a prescription for Augmentin orally and a prescription for mupirocin to be applied topically. She completed her course of Augmentin, and was subsequently evaluated by Dr. Johnson, who then prescribed a course of clindamycin. The patient continued to use mupirocin topically, but her wounds failed to heal. She was subsequently referred to the [facility] for management. The patient officially has a [place] address. She lives part of the year in [place], but she and her own a recreational vehicle, and spend a good part of their time traveling about the country. They have plans to spend this upcoming winter in [place], [place], intending to leave for their destination within a few short weeks. The patient denies fever, erythema, or manifestations of lymphangitis. She indicated that she had had occasional yellowish drainage from her wounds. Past Medical History Past Medical History: Chronic Problems Dog bite of calf (Chronic) Overweight (BMI 25.0-29.9) (Chronic) Mitzy's disease (Chronic) Hyperlipidemia (Chronic) History of TIA (transient ischemic attack) (Chronic) Rheumatoid arthritis (Chronic) Non-healing non-surgical wound (Chronic) Surgical History: - - Patient has had temporomandibular joint surgery. She is undergone bilateral bunion surgery, and surgery of the second toe on each foot. She is a Ab0. Allergies/Adverse Reactions: Allergies No Known Allergies Allergy (Verified 11/24/17 11:49) Home Medications: Ambulatory Orders Medication Instructions Recorded Desonide 0.05% [Desowen 0.05% 1 applic TOPICAL BID 11/24/17 Cream] Folic Acid 1 mg PO DAILY@0800 11/24/17 Hydrochlorothiazide [Hctz] 25 mg PO DAILY 11/24/17 Levothyroxine [Synthroid] 137 mcg PO DAILY 11/24/17 Methotrexate 15 mg PO QWEEK 11/24/17 Omeprazole 40 mg PO DAILY 11/24/17 Oxycodone HCl/Acetaminophen 1 tablet PO Q6H PRN PRN 11/24/17 [Percocet 7.5-325 mg Tablet] Sucralfate 1 gm PO BID 11/24/17 Tizanidine HCl 4 mg PO TID PRN PRN 11/24/17 Tocilizumab [Actemra] 162 mg SQ UD 11/24/17 Triamcinolone 0.5% Cream 1 applic TOPICAL BID 11/24/17 [Triamcinolone Acetonide] - Family History Paternal - - The patient's father at the age of 60 with a history of atherosclerosis and cerebrovascular accident. The patient's mother at the age of 76 with history of rheumatoid arthritis, lung cancer, and myocardial infarction. Smoking Status: Former smoker Tobacco Use: Non-smoker Review of Systems Constitutional: Denies: Chills, Fever, Weight Change Eyes: Denies: Pain, Vision Change HEENT: Denies: Difficulty Hearing, Difficulty Swallowing, Sinus Congestion Cardiovascular: Denies: Chest Pain, Palpitations Respiratory: Denies: Cough, Shortness of Breath Gastrointestinal: Denies: Diarrhea, Nausea, Vomiting Genitourinary: Denies: Dysuria, Hematuria Endocrine: Denies: Heat/ Cold Intolerance, Polydipsia, Polyuria Hematologic/ Lymphatic: Denies: Easy Bruising, Easy Bleeding - Physical Exam Vital Signs Temp Pulse Resp BP 96.0 F L 56 L 18 118/72 12/08/17 11:34 12/08/17 11:34 12/08/17 11:34 12/08/17 11:34 General: Alert, Oriented x3, Cooperative, No apparent distress, Well developed, Well nourished HEENT: Atraumatic, PERRLA, EOMI, Normocephalic Oral: Moist Mucosa Neck: No JVD Lungs: Normal air movement Abdomen: Non-Distended Extremities: No clubbing, No cyanosis, No edema, No Calf Tenderness, - - The dog bite wounds appear improved. They are slightly smaller in size. The base of the wounds are generally pink and healthy in appearance, with active granulation tissue. There is no sign of infection or cellulitis. Dimensions are documented elsewhere. Skin: No rashes Wound Measurements and Assessment WC - Nurse 1 - General Ulcer Measurement Start: 12/08/17 11:34 Freq: Status: Active Protocol: Activity Type Activity Date Activity User E-Sign Co-Sign Detail Recorded Client Recorded Date Recorded By Document 12/08/17 11:34 [email or web address] 12/08/17 11:46 ROCHELLE 12/08/17 11:34 Wound Center Nurse 1 [Ulcer Assessment] 3-RIGHT CALF -Combined with other wound No -Current Size (cm) - Length 0.2 -Current Size (cm) - Width 2.4 -Current Size (cm) - Depth 0.1 -Total Square Cm 0.48 -Photo Taken No -Epithelialization Medium 34-66% -Tunneling No -Undermining/Tunneling No -Circular Undermining No -Wound Margin Distinct, Outline Attached -Granulation Amt Small (1-33%) -Granulation Quality Rayne -Slough/Fibrin Yes -Necrosis Amt Large (67-100%) -Necrotic Tissue Type Adherent Slough -Structure Exposed None/Limited to Skin Breakdown -Texture (Tamiko-wound Skin Appearance) No Abnormality Assessed -Moisture (Tamiko-wound Skin Appearance Assessed ) Dry/Scaly -Color (Tamiko-wound Skin Appearance) No Abnormality Assessed -Temperature (Tamiko-wound Skin No Abnormality Appearance) (Pt Warm) -Tenderness on Palpation (Tamiko-wound No Skin Appearance) -Ulcer Cleansing Rinsed/ Irrigated with Saline -Foul Odor after Cleansing No -Anesthetic Used 4% Lidocaine Solution 2-RIGHT LATERAL INFERIOR LEG -Combined with other wound No -Current Size (cm) - Length 0.7 -Current Size (cm) - Width 0.4 -Current Size (cm) - Depth 0.3 -Total Square Cm 0.28 -Photo Taken No -Epithelialization Medium 34-66% -Tunneling No -Undermining/Tunneling No -Circular Undermining No -Granulation Amt Medium (34-66%) -Granulation Quality Pale -Slough/Fibrin Yes -Necrosis Amt Medium (34-66%) -Necrotic Tissue Type Adherent Slough -Structure Exposed None/Limited to Skin Breakdown -Texture (Tamiko-wound Skin Appearance) No Abnormality Assessed -Moisture (Tamiko-wound Skin Appearance No Abnormality ) Assessed Dry/Scaly -Color (Tamiko-wound Skin Appearance) No Abnormality Assessed -Temperature (Tamiko-wound Skin No Abnormality Appearance) (Pt Warm) -Tenderness on Palpation (Tamiko-wound No Skin Appearance) -Ulcer Cleansing Rinsed/ Irrigated with Saline -Foul Odor after Cleansing No -Anesthetic Used 4% Lidocaine Solution 1-RIGHT sUPERIOR LEG -Combined with other wound No -Current Size (cm) - Length 0.3 -Current Size (cm) - Width 0.2 -Current Size (cm) - Depth 0.1 -Total Square Cm 0.06 -Photo Taken No -Tunneling No -Undermining/Tunneling No -Circular Undermining No -Wound Margin Flat & Intact -Granulation Amt Large (67-100%) -Granulation Quality Red -Necrosis Amt None Present (0 %) -Moisture (Tamiko-wound Skin Appearance Assessed ) Dry/Scaly -Color (Tamiko-wound Skin Appearance) No Abnormality Assessed -Temperature (Tamiko-wound Skin No Abnormality Appearance) (Pt Warm) -Tenderness on Palpation (Tamiko-wound No Skin Appearance) -Ulcer Cleansing Rinsed/ Irrigated with Saline -Foul Odor after Cleansing No -Anesthetic Used 4% Lidocaine Solution [Edema Assessment] -Right Calf (cm) 37 -Right Ankle (cm) 22.7 WC - Nurse 2 - General Ulcer CM Notes Start: 12/08/17 11:34 Freq: Status: Active Protocol: Activity Type Activity Date Activity User E-Sign Co-Sign Detail Recorded Client Recorded Date Recorded By Document 12/08/17 12:02 DV [id number] 12/08/17 12:13 DV 12/08/17 12:02 Wound Center Nurse 2 [Procedure/Treatment] 3-RIGHT CALF -Time 12:03 -Correct Patient Yes -Correct Side, Site, Position Yes -Correct Procedure Yes -Procedure Performed Yes -Type of Procedure Debridement -Clinical Debridement Subcutaneous -Post Debridement Size (cm) - Length 0.3 -Post Debridement Size (cm) - Width 2.0 -Post Debridement Size (cm) - Depth 0.6 -Total Square Cm 0.60 -Wound/Ulcer Outcome Not Healed -Ulcer Cleansing Rinsed/ Irrigated with Saline -Foul Odor after Cleansing No -Bioengineered Tissue No -Bleeding Controlled with NA -Treatment Response Procedure Tolerated Well 2-RIGHT LATERAL INFERIOR LEG -Time 12:03 -Correct Patient Yes -Correct Side, Site, Position Yes -Correct Procedure Yes -Procedure Performed Yes -Type of Procedure Debridement -Clinical Debridement Subcutaneous -Post Debridement Size (cm) - Length 0.5 -Post Debridement Size (cm) - Width 0.5 -Post Debridement Size (cm) - Depth 0.6 -Total Square Cm 0.25 -Wound/Ulcer Outcome Not Healed -Ulcer Cleansing Rinsed/ Irrigated with Saline -Foul Odor after Cleansing No -Bioengineered Tissue No -Bleeding Controlled with Pressure -Treatment Response Procedure Tolerated Well 1-RIGHT sUPERIOR LEG -Time 12:03 -Correct Patient Yes -Correct Side, Site, Position Yes -Correct Procedure Yes -Procedure Performed Yes -Type of Procedure Debridement -Clinical Debridement Subcutaneous -Post Debridement Size (cm) - Length 0.4 -Post Debridement Size (cm) - Width 0.3 -Post Debridement Size (cm) - Depth 0.2 -Total Square Cm 0.12 -Wound/Ulcer Outcome Not Healed -Ulcer Cleansing Rinsed/ Irrigated with Saline -Foul Odor after Cleansing No -Bioengineered Tissue No -Bleeding Controlled with Pressure -Treatment Response Procedure Tolerated Well [See Physician Procedure note for Specifics] Pain Scale: 0-10 Numeric [Pain] -Is Patient Pain Free? Yes Musculoskeletal: No Muscle Wasting Neurological: Cranial nerves II-XII grossly intact, Neuro grossly intact Psych/Mental Status: Normal Affect, Appropriate, Alert and oriented to time, place, person, mood and affect Debridement Note Post-Debridement Measurements/Treatment WC - Nurse 2 - General Ulcer CM Notes Start: 12/08/17 11:34 Freq: Status: Active Protocol: Activity Type Activity Date Activity User E-Sign Co-Sign Detail Recorded Client Recorded Date Recorded By Document 12/08/17 12:02 DV [id number] 12/08/17 12:13 DV 12/08/17 12:02 Wound Center Nurse 2 3-RIGHT CALF -Time 12:03 -Correct Patient Yes -Correct Side, Site, Position Yes -Correct Procedure Yes -Procedure Performed Yes -Type of Procedure Debridement -Clinical Debridement Subcutaneous -Post Debridement Size (cm) - Length 0.3 -Post Debridement Size (cm) - Width 2.0 -Post Debridement Size (cm) - Depth 0.6 -Total Square Cm 0.60 -Wound/Ulcer Outcome Not Healed -Ulcer Cleansing Rinsed/ Irrigated with Saline -Foul Odor after Cleansing No -Bioengineered Tissue No -Bleeding Controlled with NA -Treatment Response Procedure Tolerated Well 2-RIGHT LATERAL INFERIOR LEG -Time 12:03 -Correct Patient Yes -Correct Side, Site, Position Yes -Correct Procedure Yes -Procedure Performed Yes -Type of Procedure Debridement -Clinical Debridement Subcutaneous -Post Debridement Size (cm) - Length 0.5 -Post Debridement Size (cm) - Width 0.5 -Post Debridement Size (cm) - Depth 0.6 -Total Square Cm 0.25 -Wound/Ulcer Outcome Not Healed -Ulcer Cleansing Rinsed/ Irrigated with Saline -Foul Odor after Cleansing No -Bioengineered Tissue No -Bleeding Controlled with Pressure -Treatment Response Procedure Tolerated Well 1-RIGHT sUPERIOR LEG -Time 12:03 -Correct Patient Yes -Correct Side, Site, Position Yes -Correct Procedure Yes -Procedure Performed Yes -Type of Procedure Debridement -Clinical Debridement Subcutaneous -Post Debridement Size (cm) - Length 0.4 -Post Debridement Size (cm) - Width 0.3 -Post Debridement Size (cm) - Depth 0.2 -Total Square Cm 0.12 -Wound/Ulcer Outcome Not Healed -Ulcer Cleansing Rinsed/ Irrigated with Saline -Foul Odor after Cleansing No -Bioengineered Tissue No -Bleeding Controlled with Pressure -Treatment Response Procedure Tolerated Well Pain Scale: 0-10 Numeric Is Patient Pain Free? Yes Laterality: Right - Calf wounds Type of Debridement: Excisional debridement Anesthesia Used: 4% Lidocaine Solution Depth: Down to and including healthy tissue, in the subcutaneous layer Percentage of wound debrided: 100 Instrument Used: 3mm curette Severity: Fat Layer Exposed Amount of bleeding with debridement: Mild Bleeding Controlled with: Compression and gauze Patient tolerated procedure well Assessment/Plan Active Problems Dog bite of calf (Chronic) Non-healing non-surgical wound (Chronic) Assessment: This is a 67-year-old female who sustained a dog bite wound to the right calf September 20, 2017, approximately 2 months ago. She was evaluated initially in the emergency department at [facility], and subsequently by Dr. Johnson, and has been treated topically by mupirocin and 2 separate courses of oral antibiotics, initially Augmentin and subsequently clindamycin. Despite these measures, the patient's dog bite wounds have failed to heal, and have persisted until the current time. She has been referred to our facility for evaluation and management. In general, she appears to be relatively healthy, and active. Physical examination reveals no evidence to suggest significant arterial occlusive disease. The morphology of the patient's dog bite wounds is such that there is undermining present with respect to the paired wounds on the right posterior calf and on the right lateral calf. Patient has recently undergone outpatient laboratory studies, dated October 28, 2017, with results as follows: White blood count 3.7, hemoglobin 13.6, hematocrit 40.9, glucose 88, sodium 138, potassium 3.9, chloride 103, creatinine 0.67, calcium 9.3, albumin 4.5, alkaline phosphatase 88, ALT 30, AST 30, total protein 6.7, sed rate 2, C-reactive protein less than 0.5. A culture was negative for bacterial growth. Plan: The patient has responded to the use of Nu Gauze packing changes on a daily basis. We will now switch to the use of Fibracol, used to pack the wounds every other day. The wounds are somewhat tunneled, and may be of a morphology which is not ideal for healing by secondary intention. Thus far, however, healing has been fairly progressive. This is a matter that has been explained to the patient and her . The patient, and her , have been instructed in appropriate means of packing of the wounds with Fibricol. The patient will return in 1 week for reevaluation. The wound has been cultured, and culture results were negative. Ultimately, the patient and her intend to disembark in several weeks for their winter stay in [place], [place]. The patient is not a smoker. Influenza vaccine was not administered today. Patient stands 5 feet 6 inches tall. She weighs 178 pounds. Her BMI is 28.7, which places her in an overweight category. Weight loss has been recommended, and collaboration with the patient's primary care physician has been advised.
[2017-12-15 11:08] VITALS: BP 118/80; PULSE 60; RESP 18; TEMP 35.7
--- NOTE | 2017-12-15 11:36 | PCM.WC.HP ---
(1) Dog bite of calf Status: Chronic Current Visit: Yes Qualifiers: Encounter type: subsequent encounter Laterality: right Qualified Code(s): S81.851D - Open bite, right lower leg, subsequent encounter; W54.0XXD - Bitten by dog, subsequent encounter Code(s): S81.859A - Open bite, unspecified lower leg, initial encounter; W54.0XXA - Bitten by dog, initial encounter (2) Overweight (BMI 25.0-29.9) Status: Chronic Current Visit: No Code(s): E66.3 - Overweight (3) Mitzy's disease Status: Chronic Current Visit: No Code(s): E06.3 - Autoimmune thyroiditis (4) Hyperlipidemia Status: Chronic Current Visit: No Code(s): E78.5 - Hyperlipidemia, unspecified (5) History of TIA (transient ischemic attack) Status: Chronic Current Visit: No Code(s): Z86.73 - Personal history of transient ischemic attack (TIA), and cerebral infarction without residual deficits (6) Rheumatoid arthritis Status: Chronic Current Visit: No Code(s): M06.9 - Rheumatoid arthritis, unspecified (7) Non-healing non-surgical wound Status: Chronic Current Visit: Yes Code(s): T14.8XXA - Other injury of unspecified body region, initial encounter History of Present Illness Chief Complaint: Dog bite of the right calf with chronic nonhealing History of Wound: This is a 67-year-old female who sustained a dog bite to the right calf on September 20, 2017. She was bitten by a pit bull terrier. She presented to the emergency department in [facility]. There, her wounds were cleansed, sutured, the patient was discharged with a prescription for Augmentin orally and a prescription for mupirocin to be applied topically. She completed her course of Augmentin, and was subsequently evaluated by Dr. Johnson, who then prescribed a course of clindamycin. The patient continued to use mupirocin topically, but her wounds failed to heal. She was subsequently referred to the [facility] for management. The patient officially has a [place] address. She lives part of the year in [place], but she and her own a recreational vehicle, and spend a good part of their time traveling about the country. They have plans to spend this upcoming winter in [place], [place], intending to leave for their destination within a few short weeks. The patient denies fever, erythema, or manifestations of lymphangitis. She indicated that she had had occasional yellowish drainage from her wounds. Past Medical History Past Medical History: Chronic Problems Dog bite of calf (Chronic) Overweight (BMI 25.0-29.9) (Chronic) Mitzy's disease (Chronic) Hyperlipidemia (Chronic) History of TIA (transient ischemic attack) (Chronic) Rheumatoid arthritis (Chronic) Non-healing non-surgical wound (Chronic) Surgical History: - - Patient has had temporomandibular joint surgery. She is undergone bilateral bunion surgery, and surgery of the second toe on each foot. She is a Ab0. Allergies/Adverse Reactions: Allergies No Known Allergies Allergy (Verified 11/24/17 11:49) Home Medications: Ambulatory Orders Medication Instructions Recorded Desonide 0.05% [Desowen 0.05% 1 applic TOPICAL BID 11/24/17 Cream] Folic Acid 1 mg PO DAILY@0800 11/24/17 Hydrochlorothiazide [Hctz] 25 mg PO DAILY 11/24/17 Levothyroxine [Synthroid] 137 mcg PO DAILY 11/24/17 Methotrexate 15 mg PO QWEEK 11/24/17 Omeprazole 40 mg PO DAILY 11/24/17 Oxycodone HCl/Acetaminophen 1 tablet PO Q6H PRN PRN 11/24/17 [Percocet 7.5-325 mg Tablet] Sucralfate 1 gm PO BID 11/24/17 Tizanidine HCl 4 mg PO TID PRN PRN 11/24/17 Tocilizumab [Actemra] 162 mg SQ UD 11/24/17 Triamcinolone 0.5% Cream 1 applic TOPICAL BID 11/24/17 [Triamcinolone Acetonide] - Family History Paternal - - The patient's father at the age of 60 with a history of atherosclerosis and cerebrovascular accident. The patient's mother at the age of 76 with history of rheumatoid arthritis, lung cancer, and myocardial infarction. Smoking Status: Former smoker Tobacco Use: Non-smoker Review of Systems Constitutional: Denies: Chills, Fever, Weight Change Eyes: Denies: Pain, Vision Change HEENT: Denies: Difficulty Hearing, Difficulty Swallowing, Sinus Congestion Cardiovascular: Denies: Chest Pain, Palpitations Respiratory: Denies: Cough, Shortness of Breath Gastrointestinal: Denies: Diarrhea, Nausea, Vomiting Genitourinary: Denies: Dysuria, Hematuria Endocrine: Denies: Heat/ Cold Intolerance, Polydipsia, Polyuria Hematologic/ Lymphatic: Denies: Easy Bruising, Easy Bleeding - Physical Exam Vital Signs Temp Pulse Resp BP 96.2 F L 60 18 118/80 12/15/17 11:08 12/15/17 11:08 12/15/17 11:08 12/15/17 11:08 General: Alert, Oriented x3, Cooperative, No apparent distress, Well developed, Well nourished HEENT: Atraumatic, PERRLA, EOMI, Normocephalic Oral: Moist Mucosa Neck: No JVD Lungs: Normal air movement Abdomen: Non-Distended Extremities: No clubbing, No cyanosis, No edema, No Calf Tenderness, - - The patient's dog bite wounds continue to heal progressively. There has been significant improvement. 1 of the 4 puncture wounds is now completely healed and epithelialized. The others are markedly diminished in size. There is no sign of infection or cellulitis. Dimensions are documented elsewhere. Only 1 of the wounds, persisting on the right posterior calf, has any significant depth. This wound bears close observation, as its configuration is such that healing may not proceed by secondary intention. Skin: No rashes Wound Measurements and Assessment WC - Nurse 1 - General Ulcer Measurement Start: 12/08/17 11:34 Freq: Status: Active Protocol: Activity Type Activity Date Activity User E-Sign Co-Sign Detail Recorded Client Recorded Date Recorded By Document 12/15/17 11:08 [id number] 12/15/17 11:16 ROCHELLE 12/15/17 11:08 Wound Center Nurse 1 [Ulcer Assessment] 3-RIGHT CALF -Combined with other wound No -Current Size (cm) - Length 2.0 -Current Size (cm) - Width 0.1 -Current Size (cm) - Depth 0.2 -Total Square Cm 0.20 -Photo Taken No -Epithelialization Large 67-100% -Tunneling No -Undermining/Tunneling No -Circular Undermining No -Exudate Amt None Present (0 %) -Wound Margin Flat & Intact -Granulation Amt Medium (34-66%) -Granulation Quality Red -Slough/Fibrin Yes -Necrosis Amt Medium (34-66%) -Necrotic Tissue Type Adherent Slough -Structure Exposed N/A -Texture (Tamiko-wound Skin Appearance) Assessed Scarring -Moisture (Tamiko-wound Skin Appearance Assessed ) Dry/Scaly -Color (Tamiko-wound Skin Appearance) Assessed -Temperature (Tamiko-wound Skin No Abnormality Appearance) (Pt Warm) -Tenderness on Palpation (Tamiko-wound No Skin Appearance) -Ulcer Cleansing Rinsed/ Irrigated with Saline -Foul Odor after Cleansing No -Anesthetic Used 5% Lidocaine Gel 2-RIGHT LATERAL INFERIOR LEG -Combined with other wound No -Current Size (cm) - Length 0.1 -Current Size (cm) - Width 0.1 -Current Size (cm) - Depth 0.2 -Total Square Cm 0.01 -Photo Taken No -Epithelialization Large 67-100% -Tunneling No -Undermining/Tunneling No -Circular Undermining No -Exudate Amt Small (1-33%) -Exudate Type Serosanguineous -Wound Margin Flat & Intact -Granulation Amt Large (67-100%) -Granulation Quality Red -Slough/Fibrin Yes -Necrosis Amt Small (1-33%) -Necrotic Tissue Type Adherent Slough -Structure Exposed N/A -Texture (Tamiko-wound Skin Appearance) Assessed Scarring -Moisture (Tamiko-wound Skin Appearance Assessed ) Dry/Scaly -Color (Tamiko-wound Skin Appearance) Assessed -Temperature (Tamiko-wound Skin No Abnormality Appearance) (Pt Warm) -Tenderness on Palpation (Tamiko-wound No Skin Appearance) -Ulcer Cleansing Rinsed/ Irrigated with Saline -Foul Odor after Cleansing No -Anesthetic Used 5% Lidocaine Gel 1-RIGHT sUPERIOR LEG -Combined with other wound No -Current Size (cm) - Length 0 -Current Size (cm) - Width 0 -Current Size (cm) - Depth 0 -Total Square Cm 0 -Photo Taken Yes -Epithelialization Large 67-100% [Edema Assessment] -Lower Limb Edema Present No WC - Nurse 2 - General Ulcer CM Notes Start: 12/08/17 11:34 Freq: Status: Active Protocol: Activity Type Activity Date Activity User E-Sign Co-Sign Detail Recorded Client Recorded Date Recorded By Document 12/15/17 11:20 EDI [id number] 12/15/17 11:26 JS 12/15/17 11:20 Wound Center Nurse 2 [Procedure/Treatment] 3-RIGHT CALF -Time 11:20 -Correct Patient Yes -Correct Side, Site, Position Yes -Correct Procedure Yes -Procedure Performed Yes -Type of Procedure Debridement -Clinical Debridement Subcutaneous -Post Debridement Size (cm) - Length 0.2 -Post Debridement Size (cm) - Width 0.4 -Post Debridement Size (cm) - Depth 0.2 -Total Square Cm 0.08 -Wound/Ulcer Outcome Not Healed -Ulcer Cleansing Not Cleansed -Foul Odor after Cleansing No -Bioengineered Tissue No -Topical Lidocaine (%) 4 -Lidocaine (ml) 5 -Bleeding Controlled with NA -Treatment Response Procedure Tolerated Well 2-RIGHT LATERAL INFERIOR LEG -Time 11:21 -Correct Patient Yes -Correct Side, Site, Position Yes -Correct Procedure Yes -Procedure Performed Yes -Type of Procedure Debridement -Clinical Debridement Subcutaneous -Post Debridement Size (cm) - Length 1.4 -Post Debridement Size (cm) - Width 1.0 -Post Debridement Size (cm) - Depth 0.2 -Total Square Cm 1.40 -Wound/Ulcer Outcome Not Healed -Ulcer Cleansing Rinsed/ Irrigated with Saline -Foul Odor after Cleansing No -Bioengineered Tissue No -Topical Lidocaine (%) 4 -Lidocaine (ml) 5 -Bleeding Controlled with NA -Treatment Response Procedure Tolerated Well [See Physician Procedure note for Specifics] Pain Scale: 0-10 Numeric [Pain] -Is Patient Pain Free? Yes Musculoskeletal: No Muscle Wasting Neurological: Cranial nerves II-XII grossly intact, Neuro grossly intact Psych/Mental Status: Normal Affect, Appropriate, Alert and oriented to time, place, person, mood and affect Debridement Note Post-Debridement Measurements/Treatment WC - Nurse 2 - General Ulcer CM Notes Start: 12/08/17 11:34 Freq: Status: Active Protocol: Activity Type Activity Date Activity User E-Sign Co-Sign Detail Recorded Client Recorded Date Recorded By Document 12/08/17 12:02 DV [id number] 12/08/17 12:13 DV Document 12/15/17 11:20 JS [id number] 12/15/17 11:26 JS 12/08/17 12/15/17 12:02 11:20 Wound Center Nurse 2 3-RIGHT CALF -Time 12:03 11:20 -Correct Patient Yes Yes -Correct Side, Site, Position Yes Yes -Correct Procedure Yes Yes -Procedure Performed Yes Yes -Type of Procedure Debridement Debridement -Clinical Debridement Subcutaneous Subcutaneous -Post Debridement Size (cm) - Length 0.3 0.2 -Post Debridement Size (cm) - Width 2.0 0.4 -Post Debridement Size (cm) - Depth 0.6 0.2 -Total Square Cm 0.60 0.08 -Wound/Ulcer Outcome Not Healed Not Healed -Ulcer Cleansing Rinsed/ Not Cleansed Irrigated with Saline -Foul Odor after Cleansing No No -Bioengineered Tissue No No -Topical Lidocaine (%) 4 -Lidocaine (ml) 5 -Bleeding Controlled with NA NA -Treatment Response Procedure Procedure Tolerated Well Tolerated Well 2-RIGHT LATERAL INFERIOR LEG -Time 12:03 11:21 -Correct Patient Yes Yes -Correct Side, Site, Position Yes Yes -Correct Procedure Yes Yes -Procedure Performed Yes Yes -Type of Procedure Debridement Debridement -Clinical Debridement Subcutaneous Subcutaneous -Post Debridement Size (cm) - Length 0.5 1.4 -Post Debridement Size (cm) - Width 0.5 1.0 -Post Debridement Size (cm) - Depth 0.6 0.2 -Total Square Cm 0.25 1.40 -Wound/Ulcer Outcome Not Healed Not Healed -Ulcer Cleansing Rinsed/ Rinsed/ Irrigated with Irrigated with Saline Saline -Foul Odor after Cleansing No No -Bioengineered Tissue No No -Topical Lidocaine (%) 4 -Lidocaine (ml) 5 -Bleeding Controlled with Pressure NA -Treatment Response Procedure Procedure Tolerated Well Tolerated Well 1-RIGHT sUPERIOR LEG -Time 12:03 -Correct Patient Yes -Correct Side, Site, Position Yes -Correct Procedure Yes -Procedure Performed Yes -Type of Procedure Debridement -Clinical Debridement Subcutaneous -Post Debridement Size (cm) - Length 0.4 -Post Debridement Size (cm) - Width 0.3 -Post Debridement Size (cm) - Depth 0.2 -Total Square Cm 0.12 -Wound/Ulcer Outcome Not Healed -Ulcer Cleansing Rinsed/ Irrigated with Saline -Foul Odor after Cleansing No -Bioengineered Tissue No -Bleeding Controlled with Pressure -Treatment Response Procedure Tolerated Well Pain Scale: 0-10 Numeric Is Patient Pain Free? Yes Yes Laterality: Right - Dog bite puncture wounds Type of Debridement: Excisional debridement Anesthesia Used: 4% Lidocaine Solution Depth: Down to and including healthy tissue, in the subcutaneous layer Percentage of wound debrided: 100 Instrument Used: 7mm curette Severity: Fat Layer Exposed Amount of bleeding with debridement: Mild Bleeding Controlled with: Compression and gauze Patient tolerated procedure well Assessment/Plan Active Problems Dog bite of calf (Chronic) Non-healing non-surgical wound (Chronic) Assessment: This is a 67-year-old female who sustained a dog bite wound to the right calf September 20, 2017, approximately 2 months ago. She was evaluated initially in the emergency department at [facility], and subsequently by Dr. Johnson, and has been treated topically by mupirocin and 2 separate courses of oral antibiotics, initially Augmentin and subsequently clindamycin. Despite these measures, the patient's dog bite wounds have failed to heal, and have persisted until the current time. She has been referred to our facility for evaluation and management. In general, she appears to be relatively healthy, and active. Physical examination reveals no evidence to suggest significant arterial occlusive disease. The morphology of the patient's dog bite wounds is such that there is undermining present with respect to the paired wounds on the right posterior calf and on the right lateral calf. Patient has recently undergone outpatient laboratory studies, dated October 28, 2017, with results as follows: White blood count 3.7, hemoglobin 13.6, hematocrit 40.9, glucose 88, sodium 138, potassium 3.9, chloride 103, creatinine 0.67, calcium 9.3, albumin 4.5, alkaline phosphatase 88, ALT 30, AST 30, total protein 6.7, sed rate 2, C-reactive protein less than 0.5. A culture was negative for bacterial growth. Within the last week, the patient has shown significant improvement in each of her dog bite wounds. Plan: The patient has responded well to the use of Fibracol, used to pack the wounds every other day. 1 of the 4 wounds has now completely healed. 2 of the other wounds are now very superficial, and nearly healed. Only one wound on the posterior aspect of the right calf has any significant depth, and bears close observation. Thus far, however, healing has been fairly progressive. The patient, and her , have been instructed in appropriate means of packing of the wounds with Fibricol. The patient will return in 1 week for reevaluation. Ultimately, the patient and her intend to disembark in several weeks for their winter stay in [place], [place]. The patient is not a smoker. Influenza vaccine was not administered today. Patient stands 5 feet 6 inches tall. She weighs 178 pounds. Her BMI is 28.7, which places her in an overweight category. Weight loss has been recommended, and collaboration with the patient's primary care physician has been advised.
[2017-12-24 11:17] VITALS: BP 132/79; PULSE 62; RESP 18; TEMP 35.9
--- NOTE | 2017-12-24 13:04 | PCM.WC.PN ---
(1) Ulcer of right lower extremity with fat layer exposed Status: Acute Current Visit: Yes Code(s): L97.912 - Non-pressure chronic ulcer of unspecified part of right lower leg with fat layer exposed (2) Dog bite of calf Status: Chronic Current Visit: Yes Qualifiers: Encounter type: subsequent encounter Laterality: right Qualified Code(s): S81.851D - Open bite, right lower leg, subsequent encounter; W54.0XXD - Bitten by dog, subsequent encounter Code(s): S81.859A - Open bite, unspecified lower leg, initial encounter; W54.0XXA - Bitten by dog, initial encounter (3) Overweight (BMI 25.0-29.9) Status: Chronic Current Visit: No Code(s): E66.3 - Overweight (4) Rheumatoid arthritis Status: Chronic Current Visit: No Code(s): M06.9 - Rheumatoid arthritis, unspecified Type of Wound Chief Complaint: Dog bite of the right calf with chronic nonhealing History of Wound: This is a 67-year-old female who sustained a dog bite to the right calf on September 20, 2017. She was bitten by a pit bull terrier. She presented to the emergency department in [facility]. There, her wounds were cleansed, sutured, the patient was discharged with a prescription for Augmentin orally and a prescription for mupirocin to be applied topically. She completed her course of Augmentin, and was subsequently evaluated by Dr. Johnson, who then prescribed a course of clindamycin. The patient continued to use mupirocin topically, but her wounds failed to heal. She was subsequently referred to the [facility] for management. The patient officially has a [place] address. She lives part of the year in [place], but she and her own a recreational vehicle, and spend a good part of their time traveling about the country. They have plans to spend this upcoming winter in [place], [place], intending to leave for their destination within a few short weeks. The patient denies fever, erythema, or manifestations of lymphangitis. She indicated that she had had occasional yellowish drainage from her wounds. Progress of Wound: Patient seen as courtesy visit for Dr. Yan. Site is improving this week again. - Physical Exam Vital Signs Temp Pulse Resp BP 96.6 F L 62 18 132/79 H 12/24/17 11:17 12/24/17 11:17 12/24/17 11:17 12/24/17 11:17 General: Alert, Oriented x3, Cooperative, No apparent distress Extremities: Capillary Refill Less than 3 Seconds, No Calf Tenderness - Negative Anjelica and Salcedo sign, Edema - Slight lower extremity edema Skin: Ulcer/ Wound - 2 small open ulcer sites remaining from previous dog bite noted to create an anterior lower leg and right posterior calf. Continued improvement noted. Bases are mixture of fibrin, adherent slough, and granular tissue. There is no probing to bone, no purulence, no malodor, no surrounding cellulitis or any other signs of local infection appreciated currently. Wound Measurements and Assessment WC - Nurse 1 - General Ulcer Measurement Start: 12/08/17 11:34 Freq: Status: Active Protocol: Activity Type Activity Date Activity User E-Sign Co-Sign Detail Recorded Client Recorded Date Recorded By Document 12/24/17 11:17 DL [id number] 12/24/17 11:26 DL 12/24/17 11:17 Wound Center Nurse 1 [Ulcer Assessment] 3-RIGHT CALF -Current Size (cm) - Length 0.3 -Current Size (cm) - Width 0.4 -Current Size (cm) - Depth 0.2 -Total Square Cm 0.12 -Photo Taken No -Exudate Amt None Present (0 %) -Wound Margin Distinct, Outline Attached -Granulation Amt Small (1-33%) -Granulation Quality Red -Necrosis Amt None Present (0 %) -Structure Exposed N/A -Texture (Tamiko-wound Skin Appearance) Scarring -Moisture (Tamiko-wound Skin Appearance No Abnormality ) -Color (Tamiko-wound Skin Appearance) No Abnormality -Temperature (Tamiko-wound Skin No Abnormality Appearance) (Pt Warm) -Tenderness on Palpation (Tamiko-wound No Skin Appearance) -Ulcer Cleansing Rinsed/ Irrigated with Saline -Foul Odor after Cleansing No -Anesthetic Used 4% Lidocaine Solution 2-RIGHT LATERAL INFERIOR LEG -Current Size (cm) - Length 0.4 -Current Size (cm) - Width 0.4 -Current Size (cm) - Depth 0.2 -Total Square Cm 0.16 -Photo Taken No -Exudate Amt Small (1-33%) -Exudate Type Sanguineous -Wound Margin Distinct, Outline Attached -Granulation Amt Large (67-100%) -Granulation Quality [place] -Necrosis Amt Small (1-33%) -Necrotic Tissue Type Adherent Slough -Structure Exposed N/A -Texture (Tamiko-wound Skin Appearance) Scarring -Moisture (Tamiko-wound Skin Appearance No Abnormality ) -Color (Tamiko-wound Skin Appearance) No Abnormality -Tenderness on Palpation (Tamiko-wound No Skin Appearance) -Ulcer Cleansing Rinsed/ Irrigated with Saline -Foul Odor after Cleansing No -Anesthetic Used 4% Lidocaine Solution WC - Nurse 2 - General Ulcer CM Notes Start: 12/08/17 11:34 Freq: Status: Active Protocol: Activity Type Activity Date Activity User E-Sign Co-Sign Detail Recorded Client Recorded Date Recorded By Document 12/24/17 12:15 DV [id number] 12/24/17 12:16 DV 12/24/17 12:15 Wound Center Nurse 2 [Procedure/Treatment] 3-RIGHT CALF -Time 12:15 -Correct Patient Yes -Correct Side, Site, Position Yes -Correct Procedure Yes -Procedure Performed Yes -Type of Procedure Debridement -Clinical Debridement Subcutaneous -Post Debridement Size (cm) - Length 0.3 -Post Debridement Size (cm) - Width 0.5 -Post Debridement Size (cm) - Depth 0.4 -Total Square Cm 0.15 -Wound/Ulcer Outcome Not Healed -Ulcer Cleansing Rinsed/ Irrigated with Saline -Foul Odor after Cleansing No -Bioengineered Tissue No -Bleeding Controlled with Pressure -Treatment Response Procedure Tolerated Well 2-RIGHT LATERAL INFERIOR LEG -Time 12:15 -Correct Patient Yes -Correct Side, Site, Position Yes -Correct Procedure Yes -Procedure Performed Yes -Type of Procedure Debridement -Clinical Debridement Subcutaneous -Post Debridement Size (cm) - Length 0.3 -Post Debridement Size (cm) - Width 0.4 -Post Debridement Size (cm) - Depth 0.1 -Total Square Cm 0.12 -Wound/Ulcer Outcome Not Healed -Ulcer Cleansing Rinsed/ Irrigated with Saline -Foul Odor after Cleansing No -Bioengineered Tissue No -Bleeding Controlled with Pressure -Treatment Response Procedure Tolerated Well [See Physician Procedure note for Specifics] Musculoskeletal: Tenderness - With manipulation of ulcer site Neurological: Sensory exam intact to light touch and pain Psych/Mental Status: Normal Affect, Appropriate Debridement Note Post-Debridement Measurements/Treatment - Nurse 2 - General Ulcer CM Notes Start: 12/08/17 11:34 Freq: Status: Active Protocol: Activity Type Activity Date Activity User E-Sign Co-Sign Detail Recorded Client Recorded Date Recorded By Document 12/08/17 12:02 DV [id number] 12/08/17 12:13 DV Document 12/15/17 11:20 JS [id number] 12/15/17 11:26 JS Document 12/24/17 12:15 DV [id number] 12/24/17 12:16 DV 12/08/17 12/15/17 12/24/17 12:02 11:20 12:15 Wound Center Nurse 2 3-RIGHT CALF -Time 12:03 11:20 12:15 -Correct Patient Yes Yes Yes -Correct Side, Site, Position Yes Yes Yes -Correct Procedure Yes Yes Yes -Procedure Performed Yes Yes Yes -Type of Procedure Debridement Debridement Debridement -Clinical Debridement Subcutaneous Subcutaneous Subcutaneous -Post Debridement Size (cm) - Length 0.3 0.2 0.3 -Post Debridement Size (cm) - Width 2.0 0.4 0.5 -Post Debridement Size (cm) - Depth 0.6 0.2 0.4 -Total Square Cm 0.60 0.08 0.15 -Wound/Ulcer Outcome Not Healed Not Healed Not Healed -Ulcer Cleansing Rinsed/ Not Cleansed Rinsed/ Irrigated with Irrigated with Saline Saline -Foul Odor after Cleansing No No No -Bioengineered Tissue No No No -Topical Lidocaine (%) 4 -Lidocaine (ml) 5 -Bleeding Controlled with NA NA Pressure -Treatment Response Procedure Procedure Procedure Tolerated Well Tolerated Well Tolerated Well 2-RIGHT LATERAL INFERIOR LEG -Time 12:03 11:21 12:15 -Correct Patient Yes Yes Yes -Correct Side, Site, Position Yes Yes Yes -Correct Procedure Yes Yes Yes -Procedure Performed Yes Yes Yes -Type of Procedure Debridement Debridement Debridement -Clinical Debridement Subcutaneous Subcutaneous Subcutaneous -Post Debridement Size (cm) - Length 0.5 1.4 0.3 -Post Debridement Size (cm) - Width 0.5 1.0 0.4 -Post Debridement Size (cm) - Depth 0.6 0.2 0.1 -Total Square Cm 0.25 1.40 0.12 -Wound/Ulcer Outcome Not Healed Not Healed Not Healed -Ulcer Cleansing Rinsed/ Rinsed/ Rinsed/ Irrigated with Irrigated with Irrigated with Saline Saline Saline -Foul Odor after Cleansing No No No -Bioengineered Tissue No No No -Topical Lidocaine (%) 4 -Lidocaine (ml) 5 -Bleeding Controlled with Pressure NA Pressure -Treatment Response Procedure Procedure Procedure Tolerated Well Tolerated Well Tolerated Well 1-RIGHT sUPERIOR LEG -Time 12:03 -Correct Patient Yes -Correct Side, Site, Position Yes -Correct Procedure Yes -Procedure Performed Yes -Type of Procedure Debridement -Clinical Debridement Subcutaneous -Post Debridement Size (cm) - Length 0.4 -Post Debridement Size (cm) - Width 0.3 -Post Debridement Size (cm) - Depth 0.2 -Total Square Cm 0.12 -Wound/Ulcer Outcome Not Healed -Ulcer Cleansing Rinsed/ Irrigated with Saline -Foul Odor after Cleansing No -Bioengineered Tissue No -Bleeding Controlled with Pressure -Treatment Response Procedure Tolerated Well Pain Scale: 0-10 Numeric Is Patient Pain Free? Yes Yes Wound debrided: Right anterior lower leg Laterality: Right Type of Debridement: Excisional debridement Anesthesia Used: 4% Lidocaine Solution Depth: in the subcutaneous layer Percentage of wound debrided: 100 Instrument Used: 3mm curette Tissue Removed: Adherent slough, fibrin Severity: Fat Layer Exposed Amount of bleeding with debridement: Mild Bleeding Controlled with: Pressure Patient tolerated procedure well - Additional Wound Wound debrided: Right posterior calf Laterality: Right Type of Debridement: Excisional debridement Anesthesia Used: 4% Lidocaine Solution Depth: in the subcutaneous layer Percentage of wound debrided: 100 Instrument Used: 3mm curette Tissue Removed: Adherent slough, fibrin Severity: Fat Layer Exposed Amount of bleeding with debridement: Mild Bleeding Controlled with: Pressure Patient tolerated procedure: Patient tolerated procedure well Assessment/Plan Active Problems Dog bite of calf (Chronic) Non-healing non-surgical wound (Chronic) Ulcer of right lower extremity with fat layer exposed (Acute) Assessment: This is a 67-year-old female who sustained a dog bite wound to the right calf September 20, 2017, approximately 2 months ago. She was evaluated initially in the emergency department at [facility], and subsequently by Dr. Johnson, and has been treated topically by mupirocin and 2 separate courses of oral antibiotics, initially Augmentin and subsequently clindamycin. Despite these measures, the patient's dog bite wounds have failed to heal, and have persisted until the current time. She has been referred to our facility for evaluation and management. In general, she appears to be relatively healthy, and active. Physical examination reveals no evidence to suggest significant arterial occlusive disease. The morphology of the patient's dog bite wounds is such that there is undermining present with respect to the paired wounds on the right posterior calf and on the right lateral calf. Patient has recently undergone outpatient laboratory studies, dated October 28, 2017, with results as follows: White blood count 3.7, hemoglobin 13.6, hematocrit 40.9, glucose 88, sodium 138, potassium 3.9, chloride 103, creatinine 0.67, calcium 9.3, albumin 4.5, alkaline phosphatase 88, ALT 30, AST 30, total protein 6.7, sed rate 2, C-reactive protein less than 0.5. A culture was negative for bacterial growth. Within the last week, the patient has shown significant improvement in each of her dog bite wounds. Plan: This patient was examined and evaluated today as a courtesy visit for Dr. Yan. The patient has continued to respond well to the use of Fibracol, used to pack the wounds every other day. 2 ulcers remain open but are continuing to improve. The patient, and her , have been instructed in appropriate means of packing of the wounds with Fibricol. Patient is to continue to keep these areas offloaded while seated or laying down. The patient and her will be going to the [facility] for their winter stay starting next week and this will be their last visit in our wound healing center. They will be following up at a wound healing center closer to their house in [place]. They were instructed to call the wound healing center if they have any issues, questions or concerns.
--- NOTE | 2017-12-24 13:08 | PN.PCM_ITS ---
(1) Ulcer of right lower extremity with fat layer exposed Status: Acute Current Visit: Yes Code(s): L97.912 - Non-pressure chronic ulcer of unspecified part of right lower leg with fat layer exposed (2) Dog bite of calf Status: Chronic Current Visit: Yes Qualifiers: Encounter type: subsequent encounter Laterality: right Qualified Code(s): S81.851D - Open bite, right lower leg, subsequent encounter; W54.0XXD - Bitten by dog, subsequent encounter Code(s): S81.859A - Open bite, unspecified lower leg, initial encounter; W54.0XXA - Bitten by dog, initial encounter (3) Overweight (BMI 25.0-29.9) Status: Chronic Current Visit: No Code(s): E66.3 - Overweight (4) Rheumatoid arthritis Status: Chronic Current Visit: No Code(s): M06.9 - Rheumatoid arthritis, unspecified Type of Wound Chief Complaint: Dog bite of the right calf with chronic nonhealing History of Wound: This is a 67-year-old female who sustained a dog bite to the right calf on September 20, 2017. She was bitten by a pit bull terrier. She presented to the emergency department in [facility]. There, her wounds were cleansed, sutured, the patient was discharged with a prescription for Augmentin orally and a prescription for mupirocin to be applied topically. She completed her course of Augmentin, and was subsequently evaluated by Dr. Johnson, who then prescribed a course of clindamycin. The patient continued to use mupirocin topically, but her wounds failed to heal. She was subsequently referred to the [facility] for management. The patient officially has a [place] address. She lives part of the year in [place], but she and her own a recreational vehicle, and spend a good part of their time traveling about the country. They have plans to spend this upcoming winter in [place], [place], intending to [place] [address] for their destination within a few short weeks. The patient denies fever, erythema, or manifestations of lymphangitis. She indicated that she had had occasional yellowish drainage from her wounds. Progress of Wound: Patient seen as courtesy visit for Dr. Yan. Site is improving this week again. - Physical Exam Vital Signs Temp Pulse Resp BP 96.6 F L 62 18 132/79 H 12/24/17 11:17 12/24/17 11:17 12/24/17 11:17 12/24/17 11:17 General: Alert, Oriented x3, Cooperative, No apparent distress Extremities: Capillary Refill Less than 3 Seconds, No Calf Tenderness - Negative Anjelica and Salcedo sign, Edema - Slight lower extremity edema Skin: Ulcer/ Wound - 2 small open ulcer sites remaining from previous dog bite noted to create an anterior lower leg and right posterior calf. Continued improvement noted. Bases are mixture of fibrin, adherent slough, and granular tissue. There is no probing to bone, no purulence, no malodor, no surrounding cellulitis or any other signs of local infection appreciated currently. Wound Measurements and Assessment WC - Nurse 1 - General Ulcer Measurement Start: 12/08/17 11:34 Freq: Status: Active Protocol: Activity Type Activity Date Activity User E-Sign Co-Sign Detail Recorded Client Recorded Date Recorded By Document 12/24/17 11:17 DL [id number] 12/24/17 11:26 DL 12/24/17 11:17 Wound Center Nurse 1 [Ulcer Assessment] 3-RIGHT CALF -Current Size (cm) - Length 0.3 -Current Size (cm) - Width 0.4 -Current Size (cm) - Depth 0.2 -Total Square Cm 0.12 -Photo Taken No -Exudate Amt None Present (0 %) -Wound Margin Distinct, Outline Attached -Granulation Amt Small (1-33%) -Granulation Quality Red -Necrosis Amt None Present (0 %) -Structure Exposed N/A -Texture (Tamiko-wound Skin Appearance) Scarring -Moisture (Tamiko-wound Skin Appearance No Abnormality ) -Color (Tamiko-wound Skin Appearance) No Abnormality -Temperature (Tamiko-wound Skin No Abnormality Appearance) (Pt Warm) -Tenderness on Palpation (Tamiko-wound No Skin Appearance) -Ulcer Cleansing Rinsed/ Irrigated with Saline -Foul Odor after Cleansing No -Anesthetic Used 4% Lidocaine Solution 2-RIGHT LATERAL INFERIOR LEG -Current Size (cm) - Length 0.4 -Current Size (cm) - Width 0.4 -Current Size (cm) - Depth 0.2 -Total Square Cm 0.16 -Photo Taken No -Exudate Amt Small (1-33%) -Exudate Type Sanguineous -Wound Margin Distinct, Outline Attached -Granulation Amt Large (67-100%) -Granulation Quality Marceline -Necrosis Amt Small (1-33%) -Necrotic Tissue Type Adherent Slough -Structure Exposed N/A -Texture (Tamiko-wound Skin Appearance) Scarring -Moisture (Tamiko-wound Skin Appearance No Abnormality ) -Color (Tamiko-wound Skin Appearance) No Abnormality -Tenderness on Palpation (Tamiko-wound No Skin Appearance) -Ulcer Cleansing Rinsed/ Irrigated with Saline -Foul Odor after Cleansing No -Anesthetic Used 4% Lidocaine Solution WC - Nurse 2 - General Ulcer CM Notes Start: 12/08/17 11:34 Freq: Status: Active Protocol: Activity Type Activity Date Activity User E-Sign Co-Sign Detail Recorded Client Recorded Date Recorded By Document 12/24/17 12:15 DV [id number] 12/24/17 12:16 DV 12/24/17 12:15 Wound Center Nurse 2 [Procedure/Treatment] 3-RIGHT CALF -Time 12:15 -Correct Patient Yes -Correct Side, Site, Position Yes -Correct Procedure Yes -Procedure Performed Yes -Type of Procedure Debridement -Clinical Debridement Subcutaneous -Post Debridement Size (cm) - Length 0.3 -Post Debridement Size (cm) - Width 0.5 -Post Debridement Size (cm) - Depth 0.4 -Total Square Cm 0.15 -Wound/Ulcer Outcome Not Healed -Ulcer Cleansing Rinsed/ Irrigated with Saline -Foul Odor after Cleansing No -Bioengineered Tissue No -Bleeding Controlled with Pressure -Treatment Response Procedure Tolerated Well 2-RIGHT LATERAL INFERIOR LEG -Time 12:15 -Correct Patient Yes -Correct Side, Site, Position Yes -Correct Procedure Yes -Procedure Performed Yes -Type of Procedure Debridement -Clinical Debridement Subcutaneous -Post Debridement Size (cm) - Length 0.3 -Post Debridement Size (cm) - Width 0.4 -Post Debridement Size (cm) - Depth 0.1 -Total Square Cm 0.12 -Wound/Ulcer Outcome Not Healed -Ulcer Cleansing Rinsed/ Irrigated with Saline -Foul Odor after Cleansing No -Bioengineered Tissue No -Bleeding Controlled with Pressure -Treatment Response Procedure Tolerated Well [See Physician Procedure note for Specifics] Musculoskeletal: Tenderness - With manipulation of ulcer site Neurological: Sensory exam intact to light touch and pain Psych/Mental Status: Normal Affect, Appropriate Debridement Note Post-Debridement Measurements/Treatment WC - Nurse 2 - General Ulcer CM Notes Start: 12/08/17 11:34 Freq: Status: Active Protocol: Activity Type Activity Date Activity User E-Sign Co-Sign Detail Recorded Client Recorded Date Recorded By Document 12/08/17 12:02 DV [id number] 12/08/17 12:13 DV Document 12/15/17 11:20 JS [id number] 12/15/17 11:26 JS Document 12/24/17 12:15 DV [id number] 12/24/17 12:16 DV 12/08/17 12/15/17 12/24/17 12:02 11:20 12:15 Wound Center Nurse 2 3-RIGHT CALF -Time 12:03 11:20 12:15 -Correct Patient Yes Yes Yes -Correct Side, Site, Position Yes Yes Yes -Correct Procedure Yes Yes Yes -Procedure Performed Yes Yes Yes -Type of Procedure Debridement Debridement Debridement -Clinical Debridement Subcutaneous Subcutaneous Subcutaneous -Post Debridement Size (cm) - Length 0.3 0.2 0.3 -Post Debridement Size (cm) - Width 2.0 0.4 0.5 -Post Debridement Size (cm) - Depth 0.6 0.2 0.4 -Total Square Cm 0.60 0.08 0.15 -Wound/Ulcer Outcome Not Healed Not Healed Not Healed -Ulcer Cleansing Rinsed/ Not Cleansed Rinsed/ Irrigated with Irrigated with Saline Saline -Foul Odor after Cleansing No No No -Bioengineered Tissue No No No -Topical Lidocaine (%) 4 -Lidocaine (ml) 5 -Bleeding Controlled with NA NA Pressure -Treatment Response Procedure Procedure Procedure Tolerated Well Tolerated Well Tolerated Well 2-RIGHT LATERAL INFERIOR LEG -Time 12:03 11:21 12:15 -Correct Patient Yes Yes Yes -Correct Side, Site, Position Yes Yes Yes -Correct Procedure Yes Yes Yes -Procedure Performed Yes Yes Yes -Type of Procedure Debridement Debridement Debridement -Clinical Debridement Subcutaneous Subcutaneous Subcutaneous -Post Debridement Size (cm) - Length 0.5 1.4 0.3 -Post Debridement Size (cm) - Width 0.5 1.0 0.4 -Post Debridement Size (cm) - Depth 0.6 0.2 0.1 -Total Square Cm 0.25 1.40 0.12 -Wound/Ulcer Outcome Not Healed Not Healed Not Healed -Ulcer Cleansing Rinsed/ Rinsed/ Rinsed/ Irrigated with Irrigated with Irrigated with Saline Saline Saline -Foul Odor after Cleansing No No No -Bioengineered Tissue No No No -Topical Lidocaine (%) 4 -Lidocaine (ml) 5 -Bleeding Controlled with Pressure NA Pressure -Treatment Response Procedure Procedure Procedure Tolerated Well Tolerated Well Tolerated Well 1-RIGHT sUPERIOR LEG -Time 12:03 -Correct Patient Yes -Correct Side, Site, Position Yes -Correct Procedure Yes -Procedure Performed Yes -Type of Procedure Debridement -Clinical Debridement Subcutaneous -Post Debridement Size (cm) - Length 0.4 -Post Debridement Size (cm) - Width 0.3 -Post Debridement Size (cm) - Depth 0.2 -Total Square Cm 0.12 -Wound/Ulcer Outcome Not Healed -Ulcer Cleansing Rinsed/ Irrigated with Saline -Foul Odor after Cleansing No -Bioengineered Tissue No -Bleeding Controlled with Pressure -Treatment Response Procedure Tolerated Well Pain Scale: 0-10 Numeric Is Patient Pain Free? Yes Yes Wound debrided: Right anterior lower leg Laterality: Right Type of Debridement: Excisional debridement Anesthesia Used: 4% Lidocaine Solution Depth: in the subcutaneous layer Percentage of wound debrided: 100 Instrument Used: 3mm curette Tissue Removed: Adherent slough, fibrin Severity: Fat Layer Exposed Amount of bleeding with debridement: Mild Bleeding Controlled with: Pressure Patient tolerated procedure well - Additional Wound Wound debrided: Right posterior calf Laterality: Right Type of Debridement: Excisional debridement Anesthesia Used: 4% Lidocaine Solution Depth: in the subcutaneous layer Percentage of wound debrided: 100 Instrument Used: 3mm curette Tissue Removed: Adherent slough, fibrin Severity: Fat Layer Exposed Amount of bleeding with debridement: Mild Bleeding Controlled with: Pressure Patient tolerated procedure: Patient tolerated procedure well Assessment/Plan Active Problems Dog bite of calf (Chronic) Non-healing non-surgical wound (Chronic) Ulcer of right lower extremity with fat layer exposed (Acute) Assessment: This is a 67-year-old female who sustained a dog bite wound to the right calf September 20, 2017, approximately 2 months ago. She was evaluated randal son in the emergency department at [facility], and subsequently by Dr. Johnson, and has been treated topically by mupirocin and 2 separate courses of oral antibiotics, initially Augmentin and subsequently clindamycin. Despite these measures, the patient's dog bite wounds have failed to heal, and have persisted until the current time. She has been referred to our facility for evaluation and management. In general, she appears to be relatively healthy, and active. Physical examination reveals no evidence to suggest significant arterial occlusive disease. The morphology of the patient's dog bite wounds is such that there is undermining present with respect to the paired wounds on the right posterior calf and on the right lateral calf. Patient has recently undergone outpatient laboratory studies, dated October 28, 2017, with results as follows: White blood count 3.7, hemoglobin 13.6, hematocrit 40.9, glucose 88, sodium 138, potassium 3.9, chloride 103, creatinine 0.67, calcium 9.3, albumin 4.5, alkaline phosphatase 88, ALT 30, AST 30, total protein 6.7, sed rate 2, C- reactive protein less than 0.5. A culture was negative for bacterial growth. Within the last week, the patient has shown significant improvement in each of her dog bite wounds. Plan: This patient was examined and evaluated today as a courtesy visit for Dr. Yan. The patient has continued to respond well to the use of Fibracol, used to pack the wounds every other day. 2 ulcers remain open but are continuing to improve. The patient, and her , have been instructed in appropriate means of packing of the wounds with Fibricol. Patient is to continue to keep these areas offloaded while seated or laying down. The patient and her will be going to the [facility] for their winter stay starting next week and this will be their last visit in our wound healing center. They will be following up at a wound healing center closer to their house in [place]. They were instructed to call the wound healing center if they have any issues, questions or concerns.
== END 2018-01-06 23:59 ==
LOC: WC 11:15
PROVIDERS: PCP Family Medicine; Visit Provider Surgery
DX: S81.851A Open bite, right lower leg, initial encounter (principal); W54.0XXA Bitten by dog, initial encounter; Z86.73 Personal history of transient ischemic attack (TIA), and cerebral infarction without residual deficits; E06.3 Autoimmune thyroiditis; E78.5 Hyperlipidemia, unspecified; M06.9 Rheumatoid arthritis, unspecified; Z79.899 Other long term (current) drug therapy; Z87.891 Personal history of nicotine dependence
CPT/HCPCS: 11042

== ENCOUNTER 2020-11-08 11:19 | Emergency (ER) | payer MEDICARE, SELFPAY ==
[2020-11-08 11:29] VITALS: BP 136/85; PULSE 110; RESP 20; TEMP 36.4; O2SAT 98; BMI 27.4
--- NOTE | 2020-11-08 12:15 | CT_ITS ---
STUDY: CT CERVICAL SPINE WITHOUT CONTRAST REASON FOR EXAM: Female, 70 years old. Head injury RADIATION DOSAGE (If Supplied By Facility): CTDIvol = ( 13.94 ) mGy, DLP = ( 303.73 ) mGycm TECHNIQUE: High resolution transaxial imaging was performed without contrast material. Sagittal and coronal images were reconstructed. Individualized dose optimization techniques were used for this CT. COMPARISON: None FINDINGS: Normal craniovertebral junction. There are degenerative changes of the anterior atlantoaxial articulation. Normal odontoid process. There is loss of the normal cervical lordosis. There is multilevel facet hypertrophy. C2-3: There is a posterior disc osteophyte. Normal central canal and intervertebral neuroforamina. C3-4: There is an anterior spondylolisthesis of C3 on C4 of 1.6 mm. There is bilateral narrowing of the intervertebral neuroforamina. C4-5: There is a posterior disc osteophyte and facet hypertrophy associated with narrowing of the left intervertebral neuroforamina. C5-6: There is a posterior disc osteophyte associated with stenosis of the central canal and bilateral narrowing of the intervertebral neuroforamina. C6-7: There is a posterior disc osteophyte associated with stenosis of the central canal and bilateral narrowing of the intervertebral neuroforamina. C7-T1: Normal endplates. Normal disc height and morphology. Normal central canal and intervertebral neuroforamina. There are vascular calcifications. CT/Spine Cervical without Contras IMPRESSION: Multilevel degenerative changes, as described above. Atherosclerosis. Electronically Signed: Patti Rowan MD at 12:54 EDT Tel , Service support ,
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
--- NOTE | 2020-11-08 12:35 | CT_ITS ---
STUDY: CT BRAIN WITHOUT CONTRAST REASON FOR EXAM: Female, 70 years old. Trauma RADIATION DOSAGE (If Supplied By Facility): CTDIvol = ( 44.99 ) mGy, DLP = ( 796.11 ) mGycm TECHNIQUE: Transaxial CT imaging of the brain was performed without administration of intravenous contrast material. Individualized dose optimization techniques were used for this CT. COMPARISON: No relevant priors. FINDINGS: Normal soft tissue structures. Normal calvarium. There is mild cerebral atrophy with widening of the extra-axial spaces and ventricular dilatation. Normal white matter tracts of the cerebral hemispheres. Normal basal ganglia and thalami. Normal brainstem. There is mild cerebellar atrophy. There is no intracranial hemorrhage. There are no findings of an acute ischemic infarction. Normal visualized paranasal sinuses. CT/Brain/Head without Contrast IMPRESSION: Chronic involutional changes of the brain. Electronically Signed: Patti Rowan MD at 12:49 EDT Tel , Service support ,
[2020-11-08 13:35] VITALS: BP 148/60
[2020-11-08 14:00] VITALS: BP 148/60
== END 2020-11-08 14:01 | disposition home or self-care (01) ==
PROVIDERS: Emergency Provider Emergency Medicine; PCP Family Medicine
DX: S06.0X0A Concussion without loss of consciousness, initial encounter (principal); I48.0 Paroxysmal atrial fibrillation; Z79.01 Long term (current) use of anticoagulants; Z87.891 Personal history of nicotine dependence; Z79.899 Other long term (current) drug therapy; V89.2XXA Person injured in unspecified motor-vehicle accident, traffic, initial encounter
CPT/HCPCS: 70450; 72125; 99284